=== PATIENT | male | born 1960 | race Caucasian/White ===

== ENCOUNTER 2016-10-10 14:45 | Inpatient (IN) | payer MEDICARE, OTHER ==
--- NOTE | 2016-10-10 15:49 | ED ---
General Adult HPI - General Chief complaint: Weakness Stated complaint: abdominal pain Time Seen by Provider: 10/10/16 15:00 Source: patient, EMS, RN notes reviewed Mode of arrival: EMS Limitations: no limitations - History of Present Illness Initial comments: Patient is a pleasant 56-year-old male presenting to the emergency Department as a transfer from [facility]. Patient was originally seen secondary to abdominal discomfort. Patient states it is been occurring for weeks. Patient denies any chest discomfort. Patient does admit to having exertional dyspnea. Patient was found to have concerns for acute renal failure, colon mass with liver metastases, elevated troponin. Patient was not started on heparin secondary to being occult positive. Patient denies ever having chest discomfort. Case was discussed with Dr. Reid prior to transfer of patient. - Related Data Home Medications Medication Instructions Recorded Confirmed Atorvastatin [Lipitor] 40 mg PO DAILY 06/27/14 10/10/16 OXcarbazepine [Trileptal] 300 mg PO BID 06/27/14 10/10/16 Polyethylene Glycol 3350 [Miralax] 17 gm PO BID 06/27/14 10/10/16 Sevelamer [Renvela] 800 mg PO BID 06/27/14 10/10/16 Tamsulosin HCl [Flomax] 0.4 mg PO DAILY 06/27/14 10/10/16 cloZAPine [Clozaril] 400 mg PO HS 06/27/14 10/10/16 sitaGLIPtin [Januvia] 25 mg PO DAILY 06/27/14 10/10/16 Calcitriol 0.25 mcg PO Q7D 10/10/16 10/10/16 Carvedilol [Coreg] 6.25 mg PO BID 10/10/16 10/10/16 Colloidal Oatmeal [Eucerin Eczema 1 applic TOPICAL DAILY 10/10/16 10/10/16 Relief] Docusate [Colace] 100 mg PO DAILY 10/10/16 10/10/16 Finasteride [Proscar] 5 mg PO DAILY 10/10/16 10/10/16 Multivitamins, Thera [Multivitamin 1 tab PO DAILY 10/10/16 10/10/16 (formulary)] Sulfamethoxazole/Trimethoprim 1 tab PO BID 10/10/16 10/10/16 [Bactrim DS 800-160 mg] cloZAPine [Clozaril] 200 mg PO DAILY@1500 10/10/16 10/10/16 glipiZIDE [Glucotrol] 5 mg PO DAILY 10/10/16 10/10/16 Allergies Allergy/AdvReac Type Severity Reaction Status Date / Time No Known Allergies Allergy Verified 10/10/16 15:19 Review of Systems ROS Statement: Those systems with pertinent positive or pertinent negative responses have been documented in the HPI. ROS Other: All systems not noted in ROS Statement are negative. Constitutional: Denies: fever Eyes: Denies: eye pain ENT: Denies: ear pain Respiratory: Reports: dyspnea (With exertion). Denies: cough Cardiovascular: Denies: chest pain Endocrine: Reports: fatigue Gastrointestinal: Reports: abdominal pain, constipation Genitourinary: Denies: dysuria Musculoskeletal: Denies: back pain Skin: Denies: rash Neurological: Denies: weakness Past Medical History Past Medical History: Diabetes Mellitus, Hypertension History of Any Multi-Drug Resistant Organisms: None Reported Past Surgical History: No Surgical Hx Reported Past Psychological History: Depression, Schizophrenia Smoking Status: Former smoker Past Alcohol Use History: None Reported Past Drug Use History: None Reported General Exam Limitations: no limitations General appearance: alert, in no apparent distress Head exam: Present: atraumatic Eye exam: Present: normal appearance, PERRL ENT exam: Present: normal oropharynx Neck exam: Present: normal inspection Respiratory exam: Present: normal lung sounds bilaterally Cardiovascular Exam: Present: regular rate, normal rhythm GI/Abdominal exam: Present: soft, distended (Mildly distended abdomen however patient feels this is normal for), tenderness (Mild diffuse tenderness) Extremities exam: Present: normal inspection. Absent: pedal edema, calf tenderness Neurological exam: Present: alert Psychiatric exam: Present: normal affect, normal mood Skin exam: Present: normal color Course Vital Signs 10/10/16 14:46 Temperature 97.9 F Pulse Rate 73 Respiratory 16 Rate Blood Pressure 136/87 O2 Sat by Pulse 100 Oximetry - Reevaluation(s) Reevaluation #1: 10/10/16 15:49 Records were reviewed from [facility] including computed tomography scan report. EKG Findings - EKG Comments: EKG Findings:: Normal sinus rhythm 73. W[place] 186. QRS 90. QT 414. QTC 456. Normal axis. Normal QRS. No acute ST change. Disposition Clinical Impression: Mass of cecum, Hepatic metastasis, Acute renal failure (ARF) Disposition: ADMITTED IP TO THIS HOSP Referrals: Demetri Mark DO [Primary Care Provider] - 1-2 days Decision Time: 15:50
[2016-10-10] MEDS ORDERED: SODIUM CHLORIDE 0.9% 1,000 ML IV STA (15:50)
[2016-10-10] MEDS ORDERED: NALOXONE 0.4 MG/ML 1 ML VIAL IV PRN (16:07)
[2016-10-10] MEDS ORDERED: PANTOPRAZOLE 40 MG TABLET PO STA (16:13)
[2016-10-10 17:27] LABS: Basophils # (A) 0.1 k/uL (0-0.2); Basophils % (A) 0 %; CH 29.2; Eosinophils # (A) 0.5 k/uL (0-0.7); Eosinophils % (A) 3 %; HCT 33.5 % (39.0-53.0); HDW 2.82; Hypochromasia Slight; Luc # (Auto) 0.15; Luc % (Auto) 1; Lymphocytes # (A) 1.1 k/uL (1.0-4.8); Lymphocytes % (A) 7 %; MCH 30.1 pg (25.0-35.0); MCHC 32.8 g/dL (31.0-37.0); MCV 91.6 fL (80.0-100.0); Monocytes # (A) 0.8 k/uL (0-1.0); Monocytes % (A) 6 %; Neutrophils # (A) 12.6 k/uL (1.3-7.7); Neutrophils % (A) 83 %; RBC 3.66 m/uL (4.30-5.90); WBC 15.2 k/uL (3.8-10.6); WBC (Perox) 15.43
[2016-10-10 17:31] LABS: Potassium 4.8 mmol/L (3.5-5.1); Total Protein 5.5 g/dL (6.3-8.2)
[2016-10-10 17:45] LABS: INR 1.1 (<1.2); Partial Thromboplastin Time 22.3 sec (22.0-30.0); Prothrombin Time 10.9 sec (9.0-12.0)
[2016-10-10 17:57] LABS: Troponin I 0.094 ng/mL (0.000-0.034)
[2016-10-10] MEDS: SODIUM CHLORIDE 0.9% 1,000 ML IV SCH (19:12)
[2016-10-10] MEDS: POLYETHYLENE GLYCOL 3350 17 GM POWD.PACK PO SCH (21:49)
[2016-10-10] MEDS: cloZAPine 100 MG TAB PO SCH (21:50)
[2016-10-10] MEDS: SULFAMETHOX-TMP 800-160MG 1 EACH TAB PO SCH (21:50)
[2016-10-10] MEDS: SEVELAMER 800 MG TAB PO SCH (21:50)
[2016-10-10] MEDS: CARVEDILOL 6.25 MG TAB PO SCH (21:50)
[2016-10-10] MEDS: OXcarbazepine 300 MG TAB PO SCH (21:50)
[2016-10-10 21:57] LABS: Glucose,Whole Blood 159 mg/dL (75-99)
[2016-10-10] MEDS: ONDANSETRON 4 MG/2 ML VIAL IVP PRN (21:59)
[2016-10-11] MEDS: HYDROmorphone 1 MG/ML 1 ML SYRINGE IVP PRN ×4 (00:06→21:54)
[2016-10-11] MEDS: SODIUM CHLORIDE 0.9% 1,000 ML IV SCH ×2 (04:41→11:44)
[2016-10-11 04:51] LABS: Basophils % (A) 0 %; CH 29.3; CHCM 31.6; Eosinophils # (A) 0.3 k/uL (0-0.7); Eosinophils % (A) 3 %; HCT 32.7 % (39.0-53.0); HDW 2.77; HGB 10.2 gm/dL (13.0-17.5); Hypochromasia Slight; Luc # (Auto) 0.09; Luc % (Auto) 1; Lymphocytes # (A) 0.8 k/uL (1.0-4.8); Lymphocytes % (A) 7 %; MCH 29.1 pg (25.0-35.0); MCHC 31.2 g/dL (31.0-37.0); MCV 93.3 fL (80.0-100.0); Mean Platelet Volume 7.9; Monocytes # (A) 0.5 k/uL (0-1.0); Monocytes % (A) 5 %; Neutrophils # (A) 8.8 k/uL (1.3-7.7); Neutrophils % (A) 84 %; RBC 3.51 m/uL (4.30-5.90); RDW 13.2 % (11.5-15.5); WBC 10.5 k/uL (3.8-10.6)
[2016-10-11 05:08] LABS: Calcium 8.9 mg/dL (8.4-10.2); Potassium 4.5 mmol/L (3.5-5.1); Total Bilirubin 1.1 mg/dL (0.2-1.3); Total Protein 5.2 g/dL (6.3-8.2)
[2016-10-11 05:51] LABS: Glucose,Whole Blood 129 mg/dL (75-99)
[2016-10-11 07:12] LABS: Appearance,Urine Clear (Clear); Bilirubin,Urine Negative (Negative); Glucose,Urine (UA) Negative (Negative); Ketones,Urine Negative (Negative); Leukocyte Esterase,Urine Negative (Negative); Nitrite,Urine Negative (Negative); PH, Urine 5.5 (5.0-8.0); Protein,Urine Trace (Negative); Specific Gravity,Urine 1.005 (1.001-1.035); UA Billing (MACRO vs. MICRO) CHEM; Urobilinogen,Urine <2.0 mg/dL (<2.0)
[2016-10-11] MEDS: CARVEDILOL 6.25 MG TAB PO SCH ×2 (09:10→15:59)
[2016-10-11] MEDS: SULFAMETHOX-TMP 800-160MG 1 EACH TAB PO SCH (09:10)
[2016-10-11] MEDS: SEVELAMER 800 MG TAB PO SCH ×2 (09:10→15:59)
[2016-10-11] MEDS: ATORVASTATIN 40 MG TAB PO SCH (09:10)
[2016-10-11] MEDS: DOCUSATE 100 MG CAP PO SCH (09:10)
[2016-10-11] MEDS: LINAGLIPTIN 5 MG TABLET PO SCH (09:10)
[2016-10-11] MEDS: TAMSULOSIN 0.4 MG CAP.ER.24H PO SCH (09:10)
[2016-10-11] MEDS: FINASTERIDE 5 MG TAB PO SCH (09:10)
[2016-10-11] MEDS: glipiZIDE 5 MG TAB PO SCH (09:10)
[2016-10-11] MEDS: OXcarbazepine 300 MG TAB PO SCH ×2 (09:10→21:47)
[2016-10-11] MEDS: MULTIVITAMINS, THERA 1 EACH TAB PO SCH (09:10)
[2016-10-11] MEDS: PANTOPRAZOLE 40 MG TABLET PO SCH (09:11)
[2016-10-11] MEDS: POLYETHYLENE GLYCOL 3350 17 GM POWD.PACK PO SCH ×2 (09:11→21:46)
[2016-10-11] MEDS: MINERAL OIL-WHITE PETROLATUM 120 GM JAR TOPICAL SCH (09:11)
--- NOTE | 2016-10-11 09:33 | US ---
EXAMINATION TYPE: US abdomen complete DATE OF EXAM: 10/11/2016 COMPARISON: Outside CT study from one day earlier CLINICAL HISTORY: abdominal distention. ABD distention, abnormal CT EXAM MEASUREMENTS: Liver Length: 18.1 cm Gallbladder Wall: 0.6 cm CBD: 0.6 cm Spleen: 12.6 cm Right Kidney: 9.0 x 4.0 x 4.6 cm Left Kidney: 10.5 x 4.4 x 4.3 cm Pancreas: Body wnl, at level of head there is a hypoechoic area= 4.4 x 2.4 x 4.8 cm, ?panc in origin vs possible lymph node Liver: Enlarged, grossly heterogeneous with masslike features scattered throughout Gallbladder: Slightly contracted with thickened wall Evidence for sonographic Sanders's sign: No CBD: wnl Spleen: wnl, ?possible small amount of fluid adjacent to spleen Right Kidney: No evidence of hydro, small in size Left Kidney: No evidence of hydro, specular reflections scattered throughout Upper IVC: wnl Abd Aorta: Proximal portion upper limits of normal, mid and distal portions common bile duct is uppe r limits of normal. Gassed out Pancreas is heterogeneous and bulky in appearance but appears within normal limits on recent CT. Ther e is abnormal adenopathy towards the head there level of hilda hepatis. Visualized portion of aorta p roximally shows no aneurysmal change. Majority of aorta is obscured by overlying bowel gas but appear ed within normal limits on recent CT. IVC is seen near hepatic dome. Liver is heterogeneous in appearance making evaluation for focal masses suboptimal. Innumerable jazmyn s replace liver seen better on recent CT. No intrahepatic ductal dilatation is present. Common bile d uct is upper limits of normal. Gallbladder wall is thickened up to 6 mm. No shadowing mobile gallston es or surrounding suspicious fluid is seen. No hydronephrosis is evident in either kidney. Spleen is upper limits of normal in size. IMPRESSION: 1. Innumerable lesions scattered throughout the liver felt to reflect diffuse primarily intrahepatic or more likely metastatic malignancy. Malignant adenopathy in the hilda hepatis is present. Imaging g uided random biopsy for tissue confirmation can be performed if desired. 2. Abnormal gallbladder wall thickening without shadowing intraluminal gallstones while this could be product of acalculus cholecystitis this is more likely product of liver disease related to diffuse n eoplastic involvement.
--- NOTE | 2016-10-11 10:28 | P.NPCON ---
History of Present Illness - Reason for Consult acute renal failure - History of Present Illness Reason for consultation: Chronic kidney disease History of present illness: Patient is a 56-year-old male seen in renal consultation for chronic kidney disease. 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 Patient presented to the hospital with abdominal pain which is been going on for a few weeks now. He does feel nauseous but denies any vomiting. No diarrhea. He also noted to have a colon mass with metastatic disease to the liver. He states his oral intake has been fair. Admits to good urine output. No hematuria or dysuria. I do see Bactrim listed in his home medications. Unclear as to why he is on a. Denies use of NSAIDs. He was scheduled to see vascular surgeon as an outpatient for AV fistula surgery. His creatinine was 3.9 on admission and is down to 3.7 today. No chest pain or shortness of breath. No fever or chills. No other complaints at this time. Vital signs are stable. General: The patient appeared well nourished and normally developed. HEENT: Head exam is unremarkable. Neck is without jugular venous distension. LUNGS: Lungs are clear to auscultation and percussion. Breath sounds decreased. HEART: Rate and Rhythm are regular. First and second heart sounds normal. No murmurs, rubs or gallops. ABDOMEN: Abdominal exam reveals normal bowel sounds. Non-tender and non- distended. EXTREMITITES: No clubbing, cyanosis, or edema. Past Medical History Past Medical History: Diabetes Mellitus, Hyperlipidemia, Hypertension, Prostate Disorder Additional Past Medical History / Comment(s): constipation, past anemia, deprssion, schizoprenia History of Any Multi-Drug Resistant Organisms: None Reported Past Surgical History: Tonsillectomy Past Anesthesia/Blood Transfusion Reactions: No Reported Reaction Additional Past Anesthesia/Blood Transfusion Reaction / Comment(s): pt is disabled-lives at [place] [phone]. Has [facility] public guardian ethel garvin [phone]. Smoking Status: Former smoker - Past Family History Father Family Medical History: Unable to Obtain Mother History Unknown: Yes Medications and Allergies Home Medications Medication Instructions Recorded Confirmed Type Atorvastatin [Lipitor] 40 mg PO DAILY 06/27/14 10/10/16 History OXcarbazepine [Trileptal] 300 mg PO BID 06/27/14 10/10/16 History Polyethylene Glycol 3350 [Miralax] 17 gm PO BID 06/27/14 10/10/16 History Sevelamer [Renvela] 800 mg PO BID 06/27/14 10/10/16 History Tamsulosin HCl [Flomax] 0.4 mg PO DAILY 06/27/14 10/10/16 History cloZAPine [Clozaril] 400 mg PO HS 06/27/14 10/10/16 History sitaGLIPtin [Januvia] 25 mg PO DAILY 06/27/14 10/10/16 History Calcitriol 0.25 mcg PO Q7D 10/10/16 10/10/16 History Carvedilol [Coreg] 6.25 mg PO BID 10/10/16 10/10/16 History Colloidal Oatmeal [Eucerin Eczema 1 applic TOPICAL DAILY 10/10/16 10/10/16 History Relief] Docusate [Colace] 100 mg PO DAILY 10/10/16 10/10/16 History Finasteride [Proscar] 5 mg PO DAILY 10/10/16 10/10/16 History Multivitamins, Thera [Multivitamin 1 tab PO DAILY 10/10/16 10/10/16 History (formulary)] Sulfamethoxazole/Trimethoprim 1 tab PO BID 10/10/16 10/10/16 History [Bactrim DS 800-160 mg] cloZAPine [Clozaril] 200 mg PO DAILY@1500 10/10/16 10/10/16 History glipiZIDE [Glucotrol] 5 mg PO DAILY 10/10/16 10/10/16 History Allergies Allergy/AdvReac Type Severity Reaction Status Date / Time No Known Allergies Allergy Verified 10/10/16 15:19 Physical Exam Vitals: Vital Signs Temp Pulse Pulse Resp BP BP Pulse Ox 10/11/16 09:19 97.7 F 82 16 110/71 100 10/11/16 04:00 97.7 F 87 18 119/73 99 10/11/16 00:00 97.2 F L 85 18 116/71 100 10/10/16 20:00 97.6 F 86 18 114/69 98 10/10/16 16:55 97.1 F L 85 16 121/77 100 10/10/16 15:50 98.1 F 18 98/54 92 L 10/10/16 14:46 97.9 F 73 16 136/87 100 Intake and Output 10/10/16 10/11/16 10/11/16 22:59 06:59 14:59 Intake Total 300 3500 Output Total 250 Balance 300 3250 Intake: Intake, IV Titration 1100 Amount Sodium Chloride 0.9% 1, 1100 000 ml @ 100 mls/hr IV . Q10H [facility] Rx#:[id number] Oral 300 2400 Output: Urine 250 Other: Voiding Method Incontinent Incontinent Incontinent # Voids 3 3 Weight 98.883 kg 94.5 kg Results - Lab Results Most recent lab results Calcium 8.9 mg/dL (8.4-10.2) 10/11/16 04:13 10/11/16 04:13 10/11/16 04:13 Assessment and Plan Plan: Assessment: #1. Chronic kidney disease stage IV secondary to nephrosclerosis with baseline creatinine in the range of 3-4 for the last 2 years. Urinalysis noted to be benign. #2. Colon mass with metastatic disease to the liver. #3. Chronic kidney disease mineral bone disease. #4. Metabolic acidosis secondary to chronic kidney disease. Plan: Continue normal saline at 100 mL an hour. Add sodium bicarbonate supplementation. Check phosphorus level. Avoid nephrotoxic agents and hypotensive episodes. Repeat electrolytes in the morning. Unclear as to why he is on Bactrim. Consider alternate. Monitor potassium. Thank you for the consultation. I will continue to follow the patient with you during his hospital stay.
[2016-10-11 11:41] LABS: Glucose,Whole Blood 190 mg/dL (75-99)
--- NOTE | 2016-10-11 11:49 | HP ---
ADDENDUM: Additional diagnoses will include: 1. Acute pancreatitis. 2. Moderate protein calorie malnutrition. 3. Elevated troponin secondary to renal insufficiency. 4. Elevated liver enzymes secondary to hepatic metastasis. MTDD
--- NOTE | 2016-10-11 11:51 | HP ---
CHIEF COMPLAINT: 56 year old white male with metastatic colon cancer and abdominal discomfort with increased abdominal swelling and pain over the past few weeks. He was brought to the emergency room, was found to have acute renal failure with creatinine into the 3s and colon mass and liver metastases and elevated troponin. He had occult stool positive at which time was not given heparin. He was also having some atypical chest pain. He was admitted to the hospital. Cardiology consult as well as oncologist and surgery for GI bleed. HOME MEDICATIONS: 1. Lipitor 40 mg daily. 2. Trileptal 300 b.i.d. 3. Polyethylene glycol 17 gm b.i.d. 4. Renvela 800 b.i.d. 5. Flomax 0.4 mg daily. 6. Clozaril 400 daily. 7. Januvia 25 mg po daily. 8. Calcitriol 0.25 mcg po every seven days. 9. Coreg 6.25 b.i.d. 10. Colace 100 mg daily. 11. Proscar 5 mg daily. 12. Multivitamin daily. 13. Bactrim one b.i.d. 14. Clozaril 200 daily. 15. Glucotrol 5 daily. ALLERGIES: No known drug allergies. REVIEW OF SYSTEMS: 14 point review of systems negative except for what is mentioned in the HPI. PAST MEDICAL HISTORY: Diabetes mellitus, hypertension, schizophrenia, depression, states he has never had a colonoscopy before. PHYSICAL EXAMINATION: Temperature 97.9. Pulse 77. Respiratory 16. Blood pressure 130s/80s. O2 100% on room air. CARDIOVASCULAR: S1, S2. LUNGS: Transmitted upper airway sounds. GI: Soft, nontender. HEMATOLOGICAL: Negative Funmilayo's. PSYCH: Fair mood and affect. NEUROLOGICAL: Alert and oriented times three. SKIN: Normal. VASCULAR: Excoriation with bruising. ENT: External appearing of ears and nose within normals. OPHTHALMOLOGICAL: Pupils equal, round and reactive to light and accommodation. ASSESSMENT: 1. Cecal mass suspect metastatic colon cancer with metastasis. 2. Acute abdominal distention secondary to metastases and colon cancer. 3. Acute renal failure secondary to possibly metastases. Abdominal ultrasound will be done in the morning. Surgical consult. Oncology consult. Please see further orders. MTDD
[2016-10-11 12:34] LABS: Hemoglobin A1C 6.9 % (4.2-6.1)
[2016-10-11] MEDS: cloZAPine 100 MG TAB PO SCH ×2 (15:59→21:46)
--- NOTE | 2016-10-11 16:09 | P.CRDCN ---
History of Present Illness Consult date: 10/11/16 Reason for Consult (text): elevated troponin Chief complaint: loss of balance, incontinence History of present illness: This Is a pleasant 56-year-old gentleman who resides in a [place] [facility] and is a poor historian. He presented to the emergency room here as a transfer from [facility]. Patient was originally seen secondary to abdominal discomfort and of loss of balance and incontinence. He's also been having exertional shortness of breath. Patient is found to have acute renal failure, colon mass with liver metastases and elevated troponin. Patient was positive for occult blood in his stool therefore heparin was not started. EKG on admission showed normal sinus rhythm without acute ST-T wave abnormalities. X- ray values showed a BUN of 51 and creatinine 3.7, troponin 0.094, 0.095 and 0.107. Liver enzymes have been found to be elevated with an AST of 99, ALT 98 and alkaline phosphatase 546. Upon examination, patient is resting comfortably in bed. Complains of diffuse abdominal discomfort. Also complains of some dizziness, weakness, and difficulty breathing at times. Past Medical History Past Medical History: Diabetes Mellitus, Hyperlipidemia, Hypertension, Prostate Disorder Additional Past Medical History / Comment(s): constipation, past anemia, deprssion, schizoprenia History of Any Multi-Drug Resistant Organisms: None Reported Past Surgical History: Tonsillectomy Past Anesthesia/Blood Transfusion Reactions: No Reported Reaction Additional Past Anesthesia/Blood Transfusion Reaction / Comment(s): pt is disabled-lives at [place] [phone]. Has [facility] public guardian ethel garvin [phone]. Smoking Status: Former smoker - Past Family History Father Family Medical History: Unable to Obtain Mother History Unknown: Yes Medications and Allergies Home Medications Medication Instructions Recorded Confirmed Type Atorvastatin [Lipitor] 40 mg PO DAILY 06/27/14 10/10/16 History OXcarbazepine [Trileptal] 300 mg PO BID 06/27/14 10/10/16 History Polyethylene Glycol 3350 [Miralax] 17 gm PO BID 06/27/14 10/10/16 History Sevelamer [Renvela] 800 mg PO BID 06/27/14 10/10/16 History Tamsulosin HCl [Flomax] 0.4 mg PO DAILY 06/27/14 10/10/16 History cloZAPine [Clozaril] 400 mg PO HS 06/27/14 10/10/16 History sitaGLIPtin [Januvia] 25 mg PO DAILY 06/27/14 10/10/16 History Calcitriol 0.25 mcg PO Q7D 10/10/16 10/10/16 History Carvedilol [Coreg] 6.25 mg PO BID 10/10/16 10/10/16 History Colloidal Oatmeal [Eucerin Eczema 1 applic TOPICAL DAILY 10/10/16 10/10/16 History Relief] Docusate [Colace] 100 mg PO DAILY 10/10/16 10/10/16 History Finasteride [Proscar] 5 mg PO DAILY 10/10/16 10/10/16 History Multivitamins, Thera [Multivitamin 1 tab PO DAILY 10/10/16 10/10/16 History (formulary)] Sulfamethoxazole/Trimethoprim 1 tab PO BID 10/10/16 10/10/16 History [Bactrim DS 800-160 mg] cloZAPine [Clozaril] 200 mg PO DAILY@1500 10/10/16 10/10/16 History glipiZIDE [Glucotrol] 5 mg PO DAILY 10/10/16 10/10/16 History Allergies Allergy/AdvReac Type Severity Reaction Status Date / Time No Known Allergies Allergy Verified 10/10/16 15:19 Physical Exam Vitals: Vital Signs Temp Pulse Pulse Resp BP BP Pulse Ox 10/11/16 12:00 97.6 F 81 16 108/70 100 10/11/16 09:19 97.7 F 82 16 110/71 100 10/11/16 04:00 97.7 F 87 18 119/73 99 10/11/16 00:00 97.2 F L 85 18 116/71 100 10/10/16 20:00 97.6 F 86 18 114/69 98 10/10/16 16:55 97.1 F L 85 16 121/77 100 Intake and Output 10/11/16 10/11/16 10/11/16 06:59 14:59 22:59 Intake Total 3500 180 Output Total 250 Balance 3250 180 Intake: Intake, IV Titration 1100 Amount Sodium Chloride 0.9% 1, 1100 000 ml @ 100 mls/hr IV . Q10H [facility] Rx#:[id number] Oral 2400 180 Output: Urine 250 Other: Voiding Method Incontinent Incontinent # Voids 3 Weight 94.5 kg PHYSICAL EXAMINATION: HEENT: Head is atraumatic, normocephalic. Pupils equal, round. Neck is supple. There is no elevated jugular venous pressure. HEART EXAMINATION: Heart sounds regular, S1 and S2 normal. No murmur or gallop heard. CHEST EXAMINATION: Lungs are clear to auscultation and precussion. No chest wall tenderness is noted on palpation or with deep breathing. ABDOMEN: Distended with diffuse tenderness upon palpation. Bowel sounds are heard. No organomegaly noted. EXTREMITIES: 1+ peripheral pulses with no evidence of peripheral edema and no calf tenderness noted. NEUROLOGIC patient is awake, alert and oriented to person and place. . Results 10/11/16 04:13 10/11/16 04:13 Cardiac Enzymes 10/10/16 10/10/16 10/10/16 Range/Units 16:45 16:45 22:05 AST 91 H (17-59) U/L CK-MB (CK-2) 3.0 H* (0.0-2.4) ng/mL Troponin I 0.094 H* 0.095 H* (0.000-0.034) ng/mL 10/11/16 10/11/16 Range/Units 04:13 04:13 AST 99 H (17-59) U/L CK-MB (CK-2) (0.0-2.4) ng/mL Troponin I 0.107 H* (0.000-0.034) ng/mL Coagulation 10/10/16 Range/Units 16:45 PT 10.9 (9.0-12.0) sec APTT 22.3 (22.0-30.0) sec CBC 10/10/16 10/11/16 Range/Units 16:45 04:13 WBC 15.2 H 10.5 (3.8-10.6) k/uL RBC 3.66 L 3.51 L (4.30-5.90) m/uL Hgb 11.0 L 10.2 L (13.0-17.5) gm/dL Hct 33.5 L 32.7 L (39.0-53.0) % Plt Count 186 162 (150-450) k/uL Comprehensive Metabolic Panel 10/10/16 10/11/16 Range/Units 16:45 04:13 Sodium 141 143 (137-145) mmol/L Potassium 4.8 4.5 (3.5-5.1) mmol/L Chloride 109 H 114 H (98-107) mmol/L Carbon Dioxide 21 L 16 L (22-30) mmol/L BUN 51 H 51 H (9-20) mg/dL Creatinine 3.90 H 3.70 H (0.66-1.25) mg/dL Glucose 150 H 109 H (74-99) mg/dL Calcium 9.0 8.9 (8.4-10.2) mg/dL AST 91 H 99 H (17-59) U/L ALT 101 H 98 H (21-72) U/L Alkaline Phosphatase 537 H 546 H (38-126) U/L Total Protein 5.5 L 5.2 L (6.3-8.2) g/dL Albumin 3.1 L 2.8 L (3.5-5.0) g/dL Current Medications Generic Name Dose Route Start Last Admin Trade Name Joseq PRN Reason Stop Dose Admin Atorvastatin Calcium 40 mg 10/11/16 09:00 10/11/16 09:10 Lipitor PO 40 mg DAILY [facility] Administration Calcitriol 0.25 mcg 10/12/16 09:00 Rocaltrol PO Q7D [facility] Carvedilol 6.25 mg 10/10/16 21:00 10/11/16 15:59 Coreg PO 6.25 mg BID-W/MEALS [facility] Administration Clozapine 200 mg 10/11/16 15:00 10/11/16 15:59 Clozaril PO 10/18/16 15:01 200 mg DAILY@1500 [facility] Administration Clozapine 400 mg 10/10/16 21:00 10/10/16 21:50 Clozaril PO 10/18/16 21:01 400 mg HS [facility] Administration Docusate Sodium 100 mg 10/11/16 09:00 10/11/16 09:10 Colace PO 100 mg DAILY [facility] Administration Finasteride 5 mg 10/11/16 09:00 10/11/16 09:10 Proscar PO 5 mg DAILY [facility] Administration Glipizide 5 mg 10/11/16 07:30 10/11/16 09:10 Glucotrol PO 5 mg AC-BRKFST [facility] Administration Hydromorphone HCl 1 mg 10/10/16 19:39 10/11/16 05:28 Dilaudid IVP 0.5 mg Q4HR PRN Administration Pain Sodium Chloride 1,000 mls @ 100 mls/hr 10/10/16 16:15 10/11/16 11:44 Saline 0.9% IV Not Given .Q10H [facility] Linagliptin 5 mg 10/11/16 09:00 10/11/16 09:10 Tradjenta PO 5 mg DAILY [facility] Administration Multi-Ingred Cream/Lotion/Oil/Oint 1 applic 10/11/16 09:00 10/11/16 09:11 Eucerin Cream TOPICAL 1 applic DAILY [facility] Administration Multivitamins 1 each 10/11/16 12:00 10/11/16 09:10 Theragran PO 1 each 1200 [facility] Administration Naloxone HCl 0.2 mg 10/10/16 16:07 Narcan IV Q2M PRN Opioid Reversal Ondansetron HCl 4 mg 10/10/16 16:07 10/10/16 21:59 Zofran IVP 4 mg Q8HR PRN Administration Nausea And Vomiting Oxcarbazepine 300 mg 10/10/16 21:00 10/11/16 09:10 Trileptal PO 300 mg BID [facility] Administration Pantoprazole Sodium 40 mg 10/11/16 07:30 10/11/16 09:11 Protonix PO 40 mg AC-BRKFST [facility] Administration Polyethylene Glycol 17 gm 10/10/16 21:00 10/11/16 09:11 Miralax PO 17 gm BID [facility] Administration Sevelamer Carbonate 800 mg 10/10/16 21:00 10/11/16 15:59 Renvela PO 800 mg BID-W/MEALS [facility] Administration Sodium Bicarbonate 1,300 mg 10/11/16 21:00 Sodium Bicarbonate Tab PO BID [facility] Tamsulosin HCl 0.4 mg 10/11/16 09:00 10/11/16 09:10 Flomax PO 0.4 mg DAILY [facility] Administration Trimethoprim/Sulfamethoxazole 1 each 10/10/16 21:00 10/11/16 09:10 Bactrim Ds PO 10/15/16 21:01 1 each BID [facility] Administration Intake and Output 10/11/16 10/11/16 10/11/16 06:59 14:59 22:59 Intake Total 3500 180 Output Total 250 Balance 3250 180 Intake: Intake, IV Titration 1100 Amount Sodium Chloride 0.9% 1, 1100 000 ml @ 100 mls/hr IV . Q10H [facility] Rx#:[id number] Oral 2400 180 Output: Urine 250 Other: Voiding Method Incontinent Incontinent # Voids 3 Weight 94.5 kg 10/11/16 04:13 10/11/16 04:13 Assessment and Plan Plan: Assessment and plan #1 abdominal pain #2 troponin elevation, does not reflect acute myocardial injury #3 renal failure #4 colon mass with liver metastases From cardiology standpoint, we do not feel troponins. Selective of myocardial ischemia. Elevation likely related to underlying renal failure. We'll follow the patient on an as-needed basis. Please do not hesitate to contact us with questions. 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 Patient was seen and examined.
[2016-10-11 16:59] LABS: Glucose,Whole Blood 289 mg/dL (75-99)
--- NOTE | 2016-10-11 18:01 | P.GSCN ---
History of Present Illness Consult date: 10/11/16 Reason for Consult: Colon mass History of present illness: Patient presents to an outside institution with complaints of abdominal pain and swelling. He was found on CAT scan to have a what appears to represent metastatic disease to the liver. He has no bowel related complaints. Denies rectal bleeding or melena. He has never had a colonoscopy. He is being seen by cardiology, oncology, nephrology, and interventional radiology.He is scheduled for a percutaneous liver biopsy.His medical history does suggest that he takes MiraLAX daily. Review of Systems The patient denies any acute changes in his vision or hearing, no dysphagia or odynophagia, no chest pain or shortness of breath, no dysuria or hematuria, no headache, no runny nose, no rectal bleeding or melena, no unexplained weight loss Past Medical History Past Medical History: Diabetes Mellitus, Hyperlipidemia, Hypertension, Prostate Disorder Additional Past Medical History / Comment(s): constipation, past anemia, deprssion, schizoprenia History of Any Multi-Drug Resistant Organisms: None Reported Past Surgical History: Tonsillectomy Past Anesthesia/Blood Transfusion Reactions: No Reported Reaction Additional Past Anesthesia/Blood Transfusion Reaction / Comm: pt is disabled- lives at [facility] [phone]. Has [facility] public guardian ethel garvin [phone]. Smoking Status: Former smoker - Past Family History Father Family Medical History: Unable to Obtain Mother History Unknown: Yes Medications and Allergies Home Medications Medication Instructions Recorded Confirmed Type Atorvastatin [Lipitor] 40 mg PO DAILY 06/27/14 10/10/16 History OXcarbazepine [Trileptal] 300 mg PO BID 06/27/14 10/10/16 History Polyethylene Glycol 3350 [Miralax] 17 gm PO BID 06/27/14 10/10/16 History Sevelamer [Renvela] 800 mg PO BID 06/27/14 10/10/16 History Tamsulosin HCl [Flomax] 0.4 mg PO DAILY 06/27/14 10/10/16 History cloZAPine [Clozaril] 400 mg PO HS 06/27/14 10/10/16 History sitaGLIPtin [Januvia] 25 mg PO DAILY 06/27/14 10/10/16 History Calcitriol 0.25 mcg PO Q7D 10/10/16 10/10/16 History Carvedilol [Coreg] 6.25 mg PO BID 10/10/16 10/10/16 History Colloidal Oatmeal [Eucerin Eczema 1 applic TOPICAL DAILY 10/10/16 10/10/16 History Relief] Docusate [Colace] 100 mg PO DAILY 10/10/16 10/10/16 History Finasteride [Proscar] 5 mg PO DAILY 10/10/16 10/10/16 History Multivitamins, Thera [Multivitamin 1 tab PO DAILY 10/10/16 10/10/16 History (formulary)] Sulfamethoxazole/Trimethoprim 1 tab PO BID 10/10/16 10/10/16 History [Bactrim DS 800-160 mg] cloZAPine [Clozaril] 200 mg PO DAILY@1500 10/10/16 10/10/16 History glipiZIDE [Glucotrol] 5 mg PO DAILY 10/10/16 10/10/16 History Allergies Allergy/AdvReac Type Severity Reaction Status Date / Time No Known Allergies Allergy Verified 10/10/16 15:19 Surgical - Exam Vital Signs Temp Pulse Resp BP Pulse Ox 97.9 F 73 16 136/87 100 10/10/16 14:46 10/10/16 14:46 10/10/16 14:46 10/10/16 14:46 10/10/16 14:46 Physical exam: General: Well-developed, well-nourished HEENT: Normocephalic, sclerae nonicteric Abdomen: Mild diffuse tenderness, mild distention Extremities: No edema Neuro: Alert but slightly confused Results - Labs 10/11/16 04:13 10/11/16 04:13 Abnormal Lab Results - Last 24 Hours (Table) 10/10/16 10/10/16 10/10/16 Range/Units 16:45 21:56 22:05 RBC (4.30-5.90) m/uL Hgb (13.0-17.5) gm/dL Hct (39.0-53.0) % Neutrophils # (1.3-7.7) k/uL Lymphocytes # (1.0-4.8) k/uL Chloride (98-107) mmol/L Carbon Dioxide (22-30) mmol/L BUN (9-20) mg/dL Creatinine (0.66-1.25) mg/dL Glucose (74-99) mg/dL POC Glucose (mg/dL) 159 H (75-99) mg/dL Hemoglobin A1c (4.2-6.1) % AST (17-59) U/L ALT (21-72) U/L Alkaline Phosphatase (38-126) U/L CK-MB (CK-2) 3.0 H* (0.0-2.4) ng/mL Troponin I 0.094 H* 0.095 H* (0.000-0.034) ng/mL Total Protein (6.3-8.2) g/dL Albumin (3.5-5.0) g/dL Urine Protein (Negative) 10/11/16 10/11/16 10/11/16 Range/Units 04:13 04:13 04:13 RBC 3.51 L (4.30-5.90) m/uL Hgb 10.2 L (13.0-17.5) gm/dL Hct 32.7 L (39.0-53.0) % Neutrophils # 8.8 H (1.3-7.7) k/uL Lymphocytes # 0.8 L (1.0-4.8) k/uL Chloride 114 H (98-107) mmol/L Carbon Dioxide 16 L (22-30) mmol/L BUN 51 H (9-20) mg/dL Creatinine 3.70 H (0.66-1.25) mg/dL Glucose 109 H (74-99) mg/dL POC Glucose (mg/dL) (75-99) mg/dL Hemoglobin A1c (4.2-6.1) % AST 99 H (17-59) U/L ALT 98 H (21-72) U/L Alkaline Phosphatase 546 H (38-126) U/L CK-MB (CK-2) (0.0-2.4) ng/mL Troponin I 0.107 H* (0.000-0.034) ng/mL Total Protein 5.2 L (6.3-8.2) g/dL Albumin 2.8 L (3.5-5.0) g/dL Urine Protein (Negative) 10/11/16 10/11/16 10/11/16 Range/Units 04:13 05:49 06:43 RBC (4.30-5.90) m/uL Hgb (13.0-17.5) gm/dL Hct (39.0-53.0) % Neutrophils # (1.3-7.7) k/uL Lymphocytes # (1.0-4.8) k/uL Chloride (98-107) mmol/L Carbon Dioxide (22-30) mmol/L BUN (9-20) mg/dL Creatinine (0.66-1.25) mg/dL Glucose (74-99) mg/dL POC Glucose (mg/dL) 129 H (75-99) mg/dL Hemoglobin A1c 6.9 H (4.2-6.1) % AST (17-59) U/L ALT (21-72) U/L Alkaline Phosphatase (38-126) U/L CK-MB (CK-2) (0.0-2.4) ng/mL Troponin I (0.000-0.034) ng/mL Total Protein (6.3-8.2) g/dL Albumin (3.5-5.0) g/dL Urine Protein Trace H (Negative) 10/11/16 10/11/16 Range/Units 11:37 16:47 RBC (4.30-5.90) m/uL Hgb (13.0-17.5) gm/dL Hct (39.0-53.0) % Neutrophils # (1.3-7.7) k/uL Lymphocytes # (1.0-4.8) k/uL Chloride (98-107) mmol/L Carbon Dioxide (22-30) mmol/L BUN (9-20) mg/dL Creatinine (0.66-1.25) mg/dL Glucose (74-99) mg/dL POC Glucose (mg/dL) 190 H 289 H (75-99) mg/dL Hemoglobin A1c (4.2-6.1) % AST (17-59) U/L ALT (21-72) U/L Alkaline Phosphatase (38-126) U/L CK-MB (CK-2) (0.0-2.4) ng/mL Troponin I (0.000-0.034) ng/mL Total Protein (6.3-8.2) g/dL Albumin (3.5-5.0) g/dL Urine Protein (Negative) Microbiology - Last 24 Hours (Table) 10/11/16 06:43 Urine Culture - Preliminary Urine,Clean Catch Diabetes panel 10/11/16 10/11/16 Range/Units 04:13 04:13 Sodium 143 (137-145) mmol/L Potassium 4.5 (3.5-5.1) mmol/L Chloride 114 H (98-107) mmol/L Carbon Dioxide 16 L (22-30) mmol/L BUN 51 H (9-20) mg/dL Creatinine 3.70 H (0.66-1.25) mg/dL Glucose 109 H (74-99) mg/dL Hemoglobin A1c 6.9 H (4.2-6.1) % Calcium 8.9 (8.4-10.2) mg/dL AST 99 H (17-59) U/L ALT 98 H (21-72) U/L Alkaline Phosphatase 546 H (38-126) U/L Total Protein 5.2 L (6.3-8.2) g/dL Albumin 2.8 L (3.5-5.0) g/dL Calcium panel 10/11/16 Range/Units 04:13 Calcium 8.9 (8.4-10.2) mg/dL Albumin 2.8 L (3.5-5.0) g/dL Pituitary panel 10/11/16 Range/Units 04:13 Sodium 143 (137-145) mmol/L Potassium 4.5 (3.5-5.1) mmol/L Chloride 114 H (98-107) mmol/L Carbon Dioxide 16 L (22-30) mmol/L BUN 51 H (9-20) mg/dL Creatinine 3.70 H (0.66-1.25) mg/dL Glucose 109 H (74-99) mg/dL Calcium 8.9 (8.4-10.2) mg/dL Adrenal panel 10/11/16 Range/Units 04:13 Sodium 143 (137-145) mmol/L Potassium 4.5 (3.5-5.1) mmol/L Chloride 114 H (98-107) mmol/L Carbon Dioxide 16 L (22-30) mmol/L BUN 51 H (9-20) mg/dL Creatinine 3.70 H (0.66-1.25) mg/dL Glucose 109 H (74-99) mg/dL Calcium 8.9 (8.4-10.2) mg/dL Total Bilirubin 1.1 (0.2-1.3) mg/dL AST 99 H (17-59) U/L ALT 98 H (21-72) U/L Alkaline Phosphatase 546 H (38-126) U/L Total Protein 5.2 L (6.3-8.2) g/dL Albumin 2.8 L (3.5-5.0) g/dL Assessment and Plan (1) Hepatic metastasis Narrative/Plan: Patient is on a regular diet at this time. Await liver biopsy results. Continue gentle catharsis. We'll need upper and lower endoscopy. We'll order a CEA level. Status: Acute
[2016-10-11] MEDS ORDERED: SULFAMETHOX-TMP 400-80MG 1 EACH TAB PO SCH (21:00)
[2016-10-11 21:10] LABS: Glucose,Whole Blood 168 mg/dL (75-99)
[2016-10-11] MEDS: ONDANSETRON 4 MG/2 ML VIAL IVP PRN (21:45)
[2016-10-11] MEDS: SODIUM BICARBONATE TAB 650 MG TAB PO SCH (21:47)
--- NOTE | 2016-10-11 21:53 | P.CONS ---
History of Present Illness - Reason for Consult Consult date: 10/11/16 colon mass, liver lesions Requesting physician: Phoenix Horan - Chief Complaint transfer - History of Present Illness Pt is a very pleasant male with mental disability transferred from [facility] with CT showing cecal mass and liver lesions. Pt states he has had trouble eating, poor appetite, might have vomited but not sure, he states his abd has been getting bigger but he is not sure over what period of time. He denies black or white stool, his urine is yellow, he does not have any pain. Review of Systems ROS unobtainable: due to mental status All systems: negative Past Medical History Past Medical History: Diabetes Mellitus, Hyperlipidemia, Hypertension, Prostate Disorder Additional Past Medical History / Comment(s): constipation, past anemia, deprssion, schizoprenia History of Any Multi-Drug Resistant Organisms: None Reported Past Surgical History: Tonsillectomy Past Anesthesia/Blood Transfusion Reactions: No Reported Reaction Additional Past Anesthesia/Blood Transfusion Reaction / Comm: [phone] ethel garvin [phone]. Smoking Status: Former smoker - Past Family History Father Family Medical History: Unable to Obtain Mother History Unknown: Yes Medications and Allergies Home Medications Medication Instructions Recorded Confirmed Type Atorvastatin [Lipitor] 40 mg PO DAILY 06/27/14 10/10/16 History OXcarbazepine [Trileptal] 300 mg PO BID 06/27/14 10/10/16 History Polyethylene Glycol 3350 [Miralax] 17 gm PO BID 06/27/14 10/10/16 History Sevelamer [Renvela] 800 mg PO BID 06/27/14 10/10/16 History Tamsulosin HCl [Flomax] 0.4 mg PO DAILY 06/27/14 10/10/16 History cloZAPine [Clozaril] 400 mg PO HS 06/27/14 10/10/16 History sitaGLIPtin [Januvia] 25 mg PO DAILY 06/27/14 10/10/16 History Calcitriol 0.25 mcg PO Q7D 10/10/16 10/10/16 History Carvedilol [Coreg] 6.25 mg PO BID 10/10/16 10/10/16 History Colloidal Oatmeal [Eucerin Eczema 1 applic TOPICAL DAILY 10/10/16 10/10/16 History Relief] Docusate [Colace] 100 mg PO DAILY 10/10/16 10/10/16 History Finasteride [Proscar] 5 mg PO DAILY 10/10/16 10/10/16 History Multivitamins, Thera [Multivitamin 1 tab PO DAILY 10/10/16 10/10/16 History (formulary)] Sulfamethoxazole/Trimethoprim 1 tab PO BID 10/10/16 10/10/16 History [Bactrim DS 800-160 mg] cloZAPine [Clozaril] 200 mg PO DAILY@1500 10/10/16 10/10/16 History glipiZIDE [Glucotrol] 5 mg PO DAILY 10/10/16 10/10/16 History Allergies Allergy/AdvReac Type Severity Reaction Status Date / Time No Known Allergies Allergy Verified 10/10/16 15:19 Physical Exam Vitals: Vital Signs Temp Pulse Resp BP Pulse Ox 10/11/16 16:00 97.6 F 83 16 113/72 99 10/11/16 12:00 97.6 F 81 16 108/70 100 10/11/16 09:19 97.7 F 82 16 110/71 100 10/11/16 04:00 97.7 F 87 18 119/73 99 10/11/16 00:00 97.2 F L 85 18 116/71 100 Intake and Output 10/11/16 10/11/16 10/11/16 06:59 14:59 22:59 Intake Total 3500 180 600 Output Total 250 Balance 3250 180 600 Intake: Intake, IV Titration 1100 Amount Sodium Chloride 0.9% 1, 1100 000 ml @ 100 mls/hr IV . Q10H ALYSE Rx#:[id number] Oral 2400 180 600 Output: Urine 250 Other: Voiding Method Incontinent Incontinent Incontinent # Voids 3 3 Weight 94.5 kg - Constitutional General appearance: average body habitus, cooperative, no acute distress - EENT Eyes: anicteric sclerae, EOMI, PERRLA, normal appearance ENT: hearing grossly normal, normal oropharynx - Neck Neck: no lymphadenopathy - Respiratory Respiratory: bilateral: CTA - Cardiovascular Heart sounds: normal: S1, S2 leg Peripheral Edema: bilateral: None - Gastrointestinal General gastrointestinal: no absent bowel sounds, no decreased bowel sounds, distended, hepatomegaly, no hyperactive bowel sounds, normal bowel sounds, no organomegaly, no rigid, no scaphoid, soft, no splenomegaly, no tenderness, no umbilical hernia, no ventral hernia - Integumentary Integumentary: normal - Neurologic Neurologic: CNII-XII intact - Musculoskeletal Musculoskeletal: generalized weakness - Psychiatric oriented to self, place and time, calm, mentally challenged and has difficulty communicating health history Results CBC & Chem 7: 10/11/16 04:13 10/11/16 04:13 Labs: Abnormal Lab Results - Last 24 Hours (Table) 10/10/16 10/10/16 10/11/16 Range/Units 21:56 22:05 04:13 RBC (4.30-5.90) m/uL Hgb (13.0-17.5) gm/dL Hct (39.0-53.0) % Neutrophils # (1.3-7.7) k/uL Lymphocytes # (1.0-4.8) k/uL Chloride 114 H (98-107) mmol/L Carbon Dioxide 16 L (22-30) mmol/L BUN 51 H (9-20) mg/dL Creatinine 3.70 H (0.66-1.25) mg/dL Glucose 109 H (74-99) mg/dL POC Glucose (mg/dL) 159 H (75-99) mg/dL Hemoglobin A1c (4.2-6.1) % AST 99 H (17-59) U/L ALT 98 H (21-72) U/L Alkaline Phosphatase 546 H (38-126) U/L Troponin I 0.095 H* (0.000-0.034) ng/mL Total Protein 5.2 L (6.3-8.2) g/dL Albumin 2.8 L (3.5-5.0) g/dL Urine Protein (Negative) 10/11/16 10/11/16 10/11/16 Range/Units 04:13 04:13 04:13 RBC 3.51 L (4.30-5.90) m/uL Hgb 10.2 L (13.0-17.5) gm/dL Hct 32.7 L (39.0-53.0) % Neutrophils # 8.8 H (1.3-7.7) k/uL Lymphocytes # 0.8 L (1.0-4.8) k/uL Chloride (98-107) mmol/L Carbon Dioxide (22-30) mmol/L BUN (9-20) mg/dL Creatinine (0.66-1.25) mg/dL Glucose (74-99) mg/dL POC Glucose (mg/dL) (75-99) mg/dL Hemoglobin A1c 6.9 H (4.2-6.1) % AST (17-59) U/L ALT (21-72) U/L Alkaline Phosphatase (38-126) U/L Troponin I 0.107 H* (0.000-0.034) ng/mL Total Protein (6.3-8.2) g/dL Albumin (3.5-5.0) g/dL Urine Protein (Negative) 10/11/16 10/11/16 10/11/16 Range/Units 05:49 06:43 11:37 RBC (4.30-5.90) m/uL Hgb (13.0-17.5) gm/dL Hct (39.0-53.0) % Neutrophils # (1.3-7.7) k/uL Lymphocytes # (1.0-4.8) k/uL Chloride (98-107) mmol/L Carbon Dioxide (22-30) mmol/L BUN (9-20) mg/dL Creatinine (0.66-1.25) mg/dL Glucose (74-99) mg/dL POC Glucose (mg/dL) 129 H 190 H (75-99) mg/dL Hemoglobin A1c (4.2-6.1) % AST (17-59) U/L ALT (21-72) U/L Alkaline Phosphatase (38-126) U/L Troponin I (0.000-0.034) ng/mL Total Protein (6.3-8.2) g/dL Albumin (3.5-5.0) g/dL Urine Protein Trace H (Negative) 10/11/16 10/11/16 Range/Units 16:47 21:09 RBC (4.30-5.90) m/uL Hgb (13.0-17.5) gm/dL Hct (39.0-53.0) % Neutrophils # (1.3-7.7) k/uL Lymphocytes # (1.0-4.8) k/uL Chloride (98-107) mmol/L Carbon Dioxide (22-30) mmol/L BUN (9-20) mg/dL Creatinine (0.66-1.25) mg/dL Glucose (74-99) mg/dL POC Glucose (mg/dL) 289 H 168 H (75-99) mg/dL Hemoglobin A1c (4.2-6.1) % AST (17-59) U/L ALT (21-72) U/L Alkaline Phosphatase (38-126) U/L Troponin I (0.000-0.034) ng/mL Total Protein (6.3-8.2) g/dL Albumin (3.5-5.0) g/dL Urine Protein (Negative) Microbiology - Last 24 Hours (Table) 10/11/16 06:43 Urine Culture - Preliminary Urine,Clean Catch US - abdomen: report reviewed Assessment and Plan (1) Liver lesion Status: Acute (2) Mass of cecum Status: Acute Plan: After chart review pt is being sched for liver biopsy and endoscopy. Highly suspect metastatic disease but we will await biopsy results from liver and colonoscopy. Discussed with pt that we are finding out what is going on, he was unable to tell me someone who advocates for him, he did mention a brother but his demographics does not list a next of kin or emergency contact. If pt does not have medical decision maker then Public guardian will need to be assigned do decide if there should be plans to pursue treatment for cancer if pt is diagnosed with the same. We will follow up with Social Work
--- NOTE | 2016-10-11 23:41 | PN ---
CHIEF COMPLAINT: [id number] white male presents with chronic kidney disease, stage IV, ranging over III to IV over the last 2 years. He is admitted for possible colon mass, metastatic to the liver. Awaiting biopsy by Surgery or possible radiation; or radiologist to do a needle biopsy of the liver. He has a history of diabetes mellitus, hypertension, prostate disorder, dyslipidemia. Home medications are reviewed. Consult to Dr. Julian for needle biopsy of the liver at this time, as Surgery has not assessed the patient at this time. Abdominal pain is slightly improved. CARDIOVASCULAR: S1, S2. LUNGS: Clear. GI: Distended. Obesity and firmness, possibly ascites. ASSESSMENT: 1. Colon mass with liver metastases. 2. Chronic renal disease, stage IV. 3. Metabolic acidosis. 4. Acute on chronic anemia. Continue current treatments. Awaiting possible biopsy ( ). Antibiotics ( ) and continue with current treatments. MTDD
[2016-10-12 06:51] LABS: Glucose,Whole Blood 126 mg/dL (75-99)
[2016-10-12] MEDS: PANTOPRAZOLE 40 MG TABLET PO SCH (06:51)
[2016-10-12] MEDS: SEVELAMER 800 MG TAB PO SCH ×2 (06:51→17:07)
[2016-10-12] MEDS: CARVEDILOL 6.25 MG TAB PO SCH ×2 (06:51→17:07)
[2016-10-12] MEDS: glipiZIDE 5 MG TAB PO SCH (06:51)
[2016-10-12] MEDS: SODIUM CHLORIDE 0.9% 1,000 ML IV SCH ×3 (06:52→17:07)
[2016-10-12 07:06] LABS: Anion Gap 11 mmol/L; Blood Urea Nitrogen 49 mg/dL (9-20); Calcium 8.7 mg/dL (8.4-10.2); Carbon Dioxide 17 mmol/L (22-30); Chloride 117 mmol/L (98-107); Glucose 93 mg/dL (74-99); Non-African American GFR(MDRD) 17 (>60 ml/min/1.73 sqM); Phosphorous 3.9 mg/dL (2.5-4.5); Potassium 4.6 mmol/L (3.5-5.1); Sodium 145 mmol/L (137-145)
--- NOTE | 2016-10-12 08:50 | P.PN ---
Subjective Patient is seen in follow-up for acute kidney injury on chronic kidney disease. Patient has chronic knee disease stage IV with baseline creatinine in the range of 3-4. His creatinine today is 3.8. Patient presented with abdominal pain and is noted to have a colonic mass with probable metastatic disease to the liver. States he last urinated last night. No vomiting or diarrhea. Abdominal pain is improved. Vital signs are stable. General: The patient appeared well nourished and normally developed. HEENT: Head exam is unremarkable. Neck is without jugular venous distension. LUNGS: Lungs are clear to auscultation and percussion. Breath sounds decreased. HEART: Rate and Rhythm are regular. First and second heart sounds normal. No murmurs, rubs or gallops. ABDOMEN: Abdominal exam reveals normal bowel sounds. Non-tender and non- distended. No evidence of peritonitis. EXTREMITITES: No clubbing, cyanosis, or edema. Objective - Vital Signs Vital signs: Vital Signs Temp 97.1 F L 10/12/16 04:00 Pulse 86 10/12/16 04:00 Resp 16 10/12/16 04:00 BP 113/71 10/12/16 04:00 Pulse Ox 97 10/12/16 04:00 Intake & Output 10/11/16 10/12/16 10/12/16 18:59 06:59 18:59 Intake Total 180 1200 Balance 180 1200 Weight 96.3 kg Intake: Oral 180 1200 Other: Voiding Method Incontinent Incontinent # Voids 3 - Labs CBC & Chem 7: 10/11/16 04:13 10/12/16 06:26 Labs: Abnormal Lab Results - Last 24 Hours (Table) 10/11/16 10/11/16 10/11/16 Range/Units 04:13 11:37 16:47 Chloride (98-107) mmol/L Carbon Dioxide (22-30) mmol/L BUN (9-20) mg/dL Creatinine (0.66-1.25) mg/dL POC Glucose (mg/dL) 190 H 289 H (75-99) mg/dL Hemoglobin A1c 6.9 H (4.2-6.1) % 10/11/16 10/12/16 10/12/16 Range/Units 21:09 06:26 06:31 Chloride 117 H (98-107) mmol/L Carbon Dioxide 17 L (22-30) mmol/L BUN 49 H (9-20) mg/dL Creatinine 3.80 H (0.66-1.25) mg/dL POC Glucose (mg/dL) 168 H 126 H (75-99) mg/dL Hemoglobin A1c (4.2-6.1) % Microbiology - Last 24 Hours (Table) 10/11/16 06:43 Urine Culture - Preliminary Urine,Clean Catch Assessment and Plan Plan: Assessment: #1. Chronic kidney disease stage IV secondary to nephrosclerosis with baseline creatinine in the range of 3-4 for the last 2 years. Urinalysis noted to be benign. No evidence of hydronephrosis. Rule out urinary retention. #2. Colon mass with metastatic disease to the liver. Scheduled for liver biopsy today. #3. Chronic kidney disease mineral bone disease. #4. Metabolic acidosis secondary to chronic kidney disease. Plan: Continue normal saline at 100 mL an hour. Maintain sodium bicarbonate supplementation. Avoid nephrotoxic agents and hypotensive episodes. Check postvoid residual. To insert Barth greater than 250 mL present. Repeat electrolytes in the morning. Patient was also taking Bactrim prior to admission. It has been discontinued.
[2016-10-12] MEDS: SODIUM BICARBONATE TAB 650 MG TAB PO SCH ×2 (08:57→21:41)
[2016-10-12] MEDS: TAMSULOSIN 0.4 MG CAP.ER.24H PO SCH (08:57)
[2016-10-12] MEDS: FINASTERIDE 5 MG TAB PO SCH (08:58)
[2016-10-12] MEDS: MULTIVITAMINS, THERA 1 EACH TAB PO SCH (08:58)
[2016-10-12] MEDS: LINAGLIPTIN 5 MG TABLET PO SCH (08:58)
[2016-10-12] MEDS: ATORVASTATIN 40 MG TAB PO SCH (08:58)
[2016-10-12] MEDS: OXcarbazepine 300 MG TAB PO SCH ×2 (08:58→21:41)
[2016-10-12] MEDS: DOCUSATE 100 MG CAP PO SCH (08:58)
[2016-10-12] MEDS: MINERAL OIL-WHITE PETROLATUM 120 GM JAR TOPICAL SCH (08:59)
[2016-10-12] MEDS: POLYETHYLENE GLYCOL 3350 17 GM POWD.PACK PO SCH ×2 (08:59→21:41)
[2016-10-12] MEDS ORDERED: CALCITRIOL 0.25 MCG CAP PO SCH (09:00)
[2016-10-12 10:11] LABS: INR 1.2 (<1.2); Prothrombin Time 12.2 sec (9.0-12.0)
--- NOTE | 2016-10-12 10:43 | ECHOF ---
Referral Reason:elevated troponin MEASUREMENTS -------- HEIGHT: 182.9 cm WEIGHT: 94.3 kg BP: 108/70 IVSd: 1.3 cm (0.6 - 1.1) LVIDd: 5.1 cm (3.9 - 5.3) LVPWd: 1.3 cm (0.6 - 1.1) IVSs: 1.6 cm LVIDs: 3.8 cm LVPWs: 1.6 cm LA Diam: 3.3 cm (2.7 - 3.8) Ao Diam: 4.1 cm (2.0 - 3.7) AV Cusp: 2.0 cm (1.5 - 2.6) LA Diam: 3.8 cm (2.7 - 3.8) MV EXCURSION: 22.907 mm (> 18.000) MV EF SLOPE: 28 mm/s (70 - 150) EPSS: 0.6 cm MV E Alli: 0.77 m/s MV DecT: 233 ms MV A Alli: 0.94 m/s MV E/A Ratio: 0.82 FINDINGS -------- Sinus rhythm. This was a technically adequate study. The left ventricular size is normal. There is mild concentric left ventricular hypertrophy. Overall left ventricular systolic function is normal with, an EF between 55 - 60 %. The right ventricle is normal in size. The left atrial size is normal. The right atrial size is normal. The aortic valve is trileaflet and appears structurally normal. Trace amount of aortic regurgitation. The mitral valve is normal. There is trace mitral regurgitation. Mild tricuspid regurgitation present. There is no pulmonic regurgitation present. The aortic root size is normal. There is no pericardial effusion. CONCLUSIONS -------- 1. Sinus rhythm. 2. There is no pericardial effusion. 3. There is mild concentric left ventricular hypertrophy. 4. Overall left ventricular systolic function is normal with, an EF between 55 - 60 %. 5. The left atrial size is normal. 6. The aortic valve is trileaflet and appears structurally normal. 7. Trace amount of aortic regurgitation. 8. There is trace mitral regurgitation. 9. Mild tricuspid regurgitation present. 10. There is no pulmonic regurgitation present. [employer] CHIEF: Rochelle Holloway RDCS
[2016-10-12 11:34] LABS: Glucose,Whole Blood 236 mg/dL (75-99)
[2016-10-12 16:55] LABS: Glucose,Whole Blood 438 mg/dL (75-99)
[2016-10-12] MEDS: cloZAPine 100 MG TAB PO SCH ×2 (17:07→21:41)
[2016-10-12] MEDS: INSULIN LISPRO (humaLOG) 300 UNIT/3 ML VIAL SQ SCH ×2 (18:37→21:40)
[2016-10-12] MEDS: HYDROmorphone 1 MG/ML 1 ML SYRINGE IVP PRN (18:55)
[2016-10-12 20:46] LABS: Glucose,Whole Blood 125 mg/dL (75-99)
--- NOTE | 2016-10-12 22:40 | P.PN ---
Subjective Principal diagnosis: Liver metastasis Patient denies abdominal pain today. He is tolerating his liquid diet. His labs were reviewed. His CEA level is quite elevated at greater than 4000. Objective - Vital Signs Vital signs: Vital Signs Temp 97.5 F L 10/12/16 16:00 Pulse 86 10/12/16 16:00 Resp 16 10/12/16 16:00 BP 126/72 10/12/16 16:00 Pulse Ox 99 10/12/16 16:00 Intake & Output 10/12/16 10/12/16 10/13/16 06:59 18:59 06:59 Intake Total 1200 1400 Balance 1200 1400 Weight 96.3 kg Intake: Oral 1200 1400 Other: Voiding Method Incontinent Incontinent # Voids 3 1 - Exam Abdomen: Soft, mild distention, mild diffuse tenderness - Labs CBC & Chem 7: 10/11/16 04:13 10/12/16 06:26 Labs: Abnormal Lab Results - Last 24 Hours (Table) 10/12/16 10/12/16 10/12/16 Range/Units 06:26 06:31 09:45 PT 12.2 H (9.0-12.0) sec INR 1.2 H (<1.2) Chloride 117 H (98-107) mmol/L Carbon Dioxide 17 L (22-30) mmol/L BUN 49 H (9-20) mg/dL Creatinine 3.80 H (0.66-1.25) mg/dL POC Glucose (mg/dL) 126 H (75-99) mg/dL Carcinoembryonic Ag >4000.0 H (0.0-5.0) ng/mL 10/12/16 10/12/16 10/12/16 Range/Units 11:32 16:51 20:45 PT (9.0-12.0) sec INR (<1.2) Chloride (98-107) mmol/L Carbon Dioxide (22-30) mmol/L BUN (9-20) mg/dL Creatinine (0.66-1.25) mg/dL POC Glucose (mg/dL) 236 H 438 H 125 H (75-99) mg/dL Carcinoembryonic Ag (0.0-5.0) ng/mL Microbiology - Last 24 Hours (Table) 10/11/16 06:43 Urine Culture - Final Urine,Clean Catch Assessment and Plan (1) Hepatic metastasis Narrative/Plan: Agree with plans for liver biopsy. Colonoscopy to be performed based on those findings. Continue liquid diet for now. Status: Acute
[2016-10-13 05:58] LABS: Glucose,Whole Blood 173 mg/dL (75-99)
[2016-10-13] MEDS: CARVEDILOL 6.25 MG TAB PO SCH ×2 (06:30→16:42)
[2016-10-13] MEDS: INSULIN LISPRO (humaLOG) 300 UNIT/3 ML VIAL SQ SCH ×4 (06:30→20:45)
[2016-10-13] MEDS: glipiZIDE 5 MG TAB PO SCH ×2 (06:30→11:08)
[2016-10-13] MEDS: SEVELAMER 800 MG TAB PO SCH ×2 (06:31→16:42)
[2016-10-13] MEDS: PANTOPRAZOLE 40 MG TABLET PO SCH (06:31)
[2016-10-13 06:49] LABS: Potassium 4.7 mmol/L (3.5-5.1)
--- NOTE | 2016-10-13 08:23 | P.PN ---
Subjective Patient is seen in follow-up for acute kidney injury on chronic kidney disease. Patient has chronic knee disease stage IV with baseline creatinine in the range of 3-4. His creatinine today is improved to 3.6. Patient presented with abdominal pain and is noted to have a colonic mass with probable metastatic disease to the liver. Admits to good urine output. No vomiting or diarrhea. Abdominal pain is improved. Vital signs are stable. General: The patient appeared well nourished and normally developed. HEENT: Head exam is unremarkable. Neck is without jugular venous distension. LUNGS: Lungs are clear to auscultation and percussion. Breath sounds decreased. HEART: Rate and Rhythm are regular. First and second heart sounds normal. No murmurs, rubs or gallops. ABDOMEN: Abdominal exam reveals normal bowel sounds. Non-tender and non- distended. No evidence of peritonitis. EXTREMITITES: No clubbing, cyanosis, or edema. Objective - Vital Signs Vital signs: Vital Signs Temp 97.6 F 10/13/16 08:16 Pulse 85 10/13/16 08:16 Resp 16 10/13/16 08:16 BP 122/74 10/13/16 08:16 Pulse Ox 100 10/13/16 08:16 Intake & Output 10/12/16 10/13/16 10/13/16 18:59 06:59 18:59 Intake Total 1400 500 Balance 1400 500 Weight 98.6 kg Intake: Intake, IV Titration 500 Amount Sodium Chloride 0.9% 1, 500 000 ml @ 100 mls/hr IV . Q10H [facility] Rx#:[id number] Oral 1400 Other: Voiding Method Incontinent Incontinent Incontinent # Voids 1 - Labs CBC & Chem 7: 10/11/16 04:13 10/13/16 06:06 Labs: Abnormal Lab Results - Last 24 Hours (Table) 10/12/16 10/12/16 10/12/16 Range/Units 06:26 09:45 11:32 PT 12.2 H (9.0-12.0) sec INR 1.2 H (<1.2) Sodium (137-145) mmol/L Chloride (98-107) mmol/L Carbon Dioxide (22-30) mmol/L BUN (9-20) mg/dL Creatinine (0.66-1.25) mg/dL Glucose (74-99) mg/dL POC Glucose (mg/dL) 236 H (75-99) mg/dL Carcinoembryonic Ag >4000.0 H (0.0-5.0) ng/mL 10/12/16 10/12/16 10/13/16 Range/Units 16:51 20:45 05:57 PT (9.0-12.0) sec INR (<1.2) Sodium (137-145) mmol/L Chloride (98-107) mmol/L Carbon Dioxide (22-30) mmol/L BUN (9-20) mg/dL Creatinine (0.66-1.25) mg/dL Glucose (74-99) mg/dL POC Glucose (mg/dL) 438 H 125 H 173 H (75-99) mg/dL Carcinoembryonic Ag (0.0-5.0) ng/mL 10/13/16 Range/Units 06:06 PT (9.0-12.0) sec INR (<1.2) Sodium 146 H (137-145) mmol/L Chloride 117 H (98-107) mmol/L Carbon Dioxide 19 L (22-30) mmol/L BUN 42 H (9-20) mg/dL Creatinine 3.60 H (0.66-1.25) mg/dL Glucose 103 H (74-99) mg/dL POC Glucose (mg/dL) (75-99) mg/dL Carcinoembryonic Ag (0.0-5.0) ng/mL Microbiology - Last 24 Hours (Table) 10/11/16 06:43 Urine Culture - Final Urine,Clean Catch Assessment and Plan Plan: Assessment: #1. Chronic kidney disease stage IV secondary to nephrosclerosis with baseline creatinine in the range of 3-4 for the last 2 years. Urinalysis noted to be benign. No evidence of hydronephrosis. Renal function a little improved with creatinine at 3.6 today. #2. Colon mass with metastatic disease to the liver. Scheduled for liver biopsy today. #3. Chronic kidney disease mineral bone disease. #4. Metabolic acidosis secondary to chronic kidney disease. Improved. #5. Mild hypernatremia secondary to lack of oral water intake. Plan: I will change IV fluids to half-normal saline to be run at 75 mL an hour. Maintain sodium bicarbonate supplementation. Avoid nephrotoxic agents and hypotensive episodes. Repeat electrolytes in the morning. Patient was also taking Bactrim prior to admission. It has been discontinued.
[2016-10-13] MEDS: HYDROmorphone 1 MG/ML 1 ML SYRINGE IVP PRN (08:55)
[2016-10-13] MEDS: SODIUM CHLORIDE 0.9% 1,000 ML IV SCH (11:02)
[2016-10-13] MEDS: SODIUM CHLORIDE 0.45% 1,000 ML IV SCH ×2 (11:03→20:45)
[2016-10-13] MEDS: MULTIVITAMINS, THERA 1 EACH TAB PO SCH (11:06)
[2016-10-13] MEDS: LINAGLIPTIN 5 MG TABLET PO SCH (11:06)
[2016-10-13] MEDS: TAMSULOSIN 0.4 MG CAP.ER.24H PO SCH (11:06)
[2016-10-13] MEDS: OXcarbazepine 300 MG TAB PO SCH ×2 (11:06→20:40)
[2016-10-13] MEDS: SODIUM BICARBONATE TAB 650 MG TAB PO SCH ×2 (11:07→20:40)
[2016-10-13] MEDS: FINASTERIDE 5 MG TAB PO SCH (11:07)
[2016-10-13] MEDS: MINERAL OIL-WHITE PETROLATUM 120 GM JAR TOPICAL SCH (11:07)
[2016-10-13] MEDS: DOCUSATE 100 MG CAP PO SCH (11:07)
[2016-10-13] MEDS: ATORVASTATIN 40 MG TAB PO SCH (11:07)
[2016-10-13] MEDS: POLYETHYLENE GLYCOL 3350 17 GM POWD.PACK PO SCH ×2 (11:07→20:40)
[2016-10-13 11:35] LABS: Glucose,Whole Blood 125 mg/dL (75-99)
--- NOTE | 2016-10-13 15:29 | PN ---
SUBJECTIVE: White male, [id number] with metastatic what looks like liver cancer coming from the colon. Surgical consult is still pending and workup is pending. He is supposed to get a biopsy of his liver with needle biopsy tomorrow. CARDIOVASCULAR: S1, S2. LUNGS: Clear. PSYCH: Fair mood and affect. GI: ( ) firm, obese. EXTREMITIES: No cyanosis, clubbing or edema. ASSESSMENT: 1. Colon cancer to the liver metastasis most likely needle biopsy of the liver will be done tomorrow. 2. Acute renal failure. 3. Schizophrenia. 4. Generalized debility. 5. Protein calorie malnutrition. Needle biopsy will be done. Plan for outpatient chemoradiation will be done. Prognosis extremely guarded. MTDD
[2016-10-13 16:38] LABS: Glucose,Whole Blood 243 mg/dL (75-99)
[2016-10-13] MEDS: cloZAPine 100 MG TAB PO SCH ×2 (16:41→20:40)
--- NOTE | 2016-10-13 18:37 | P.PN ---
Subjective Principal diagnosis: Colon cancer Is resting comfortably in his bed. He denies any significant abdominal pain. Family has had a liver biopsy performed. On exam is lesser stable. His abdomen soft. Metastatic cancer. Patient will need upper and lower endoscopy. Objective - Vital Signs Vital signs: Vital Signs Temp 97.6 F 10/13/16 16:00 Pulse 85 10/13/16 16:00 Resp 16 10/13/16 16:00 BP 104/62 10/13/16 16:00 Pulse Ox 98 10/13/16 16:00 Intake & Output 10/12/16 10/13/16 10/13/16 18:59 06:59 18:59 Intake Total 1400 500 840 Output Total 2 Balance 1400 500 838 Weight 98.6 kg Intake: Intake, IV Titration 500 Amount Sodium Chloride 0.9% 1, 500 000 ml @ 100 mls/hr IV . Q10H [facility] Rx#:[id number] Oral 1400 840 Output: Stool 2 Other: Voiding Method Incontinent Incontinent Diaper # Voids 1 1 # Bowel Movements 1 - Labs CBC & Chem 7: 10/11/16 04:13 10/13/16 06:06 Labs: Abnormal Lab Results - Last 24 Hours (Table) 10/12/16 10/13/16 10/13/16 Range/Units 20:45 05:57 06:06 Sodium 146 H (137-145) mmol/L Chloride 117 H (98-107) mmol/L Carbon Dioxide 19 L (22-30) mmol/L BUN 42 H (9-20) mg/dL Creatinine 3.60 H (0.66-1.25) mg/dL Glucose 103 H (74-99) mg/dL POC Glucose (mg/dL) 125 H 173 H (75-99) mg/dL 10/13/16 10/13/16 Range/Units 11:32 16:37 Sodium (137-145) mmol/L Chloride (98-107) mmol/L Carbon Dioxide (22-30) mmol/L BUN (9-20) mg/dL Creatinine (0.66-1.25) mg/dL Glucose (74-99) mg/dL POC Glucose (mg/dL) 125 H 243 H (75-99) mg/dL
[2016-10-13] MEDS: ONDANSETRON 4 MG/2 ML VIAL IVP PRN (20:40)
[2016-10-13 20:46] LABS: Glucose,Whole Blood 286 mg/dL (75-99)
[2016-10-14 05:51] LABS: Glucose,Whole Blood 204 mg/dL (75-99)
[2016-10-14] MEDS: PANTOPRAZOLE 40 MG TABLET PO SCH (06:19)
[2016-10-14] MEDS: glipiZIDE 5 MG TAB PO SCH (06:19)
[2016-10-14] MEDS: INSULIN LISPRO (humaLOG) 300 UNIT/3 ML VIAL SQ SCH ×4 (06:19→21:31)
[2016-10-14] MEDS: SEVELAMER 800 MG TAB PO SCH ×2 (06:19→17:47)
[2016-10-14] MEDS: CARVEDILOL 6.25 MG TAB PO SCH ×2 (06:19→16:16)
[2016-10-14 07:14] LABS: Calcium 8.8 mg/dL (8.4-10.2); Potassium 4.5 mmol/L (3.5-5.1)
[2016-10-14] MEDS: OXcarbazepine 300 MG TAB PO SCH ×2 (08:19→21:31)
[2016-10-14] MEDS: SODIUM BICARBONATE TAB 650 MG TAB PO SCH ×2 (08:19→21:31)
[2016-10-14] MEDS: MINERAL OIL-WHITE PETROLATUM 120 GM JAR TOPICAL SCH (08:19)
[2016-10-14] MEDS: DOCUSATE 100 MG CAP PO SCH (08:20)
[2016-10-14] MEDS: LINAGLIPTIN 5 MG TABLET PO SCH (08:20)
[2016-10-14] MEDS: FINASTERIDE 5 MG TAB PO SCH (08:20)
[2016-10-14] MEDS: POLYETHYLENE GLYCOL 3350 17 GM POWD.PACK PO SCH ×3 (08:21→19:58)
[2016-10-14] MEDS: TAMSULOSIN 0.4 MG CAP.ER.24H PO SCH (08:21)
[2016-10-14] MEDS: SODIUM CHLORIDE 0.45% 1,000 ML IV SCH (08:22)
[2016-10-14] MEDS: MULTIVITAMINS, THERA 1 EACH TAB PO SCH (08:22)
--- NOTE | 2016-10-14 09:13 | PN ---
Patient is seen for follow up for acute kidney injury. He was found to have colonic mass and liver metastasis and he had biopsy yesterday. Patient does have CKD stage IV. His serum creatinine has been staying at about 3.6 to 3.3 mg/ dL. There was an element of acute kidney injury, which seems to be improving slightly. On examination: Blood pressure is 106//61, heart rate 77 per minute. He is afebrile. Examination of the heart: S1, S2. Examination of lungs: Bilateral breath sounds are heard. Abdomen is soft, distended, nontender. Examination of lower extremities showed no significant edema. 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 Labs show sodium 146, potassium 4.5, BUN 41, serum creatinine 3.39. ASSESSMENT: 1. Acute kidney injury, prerenal currently improving maintained on IV fluids. 2. Mild hypernatremia. Will change IV fluids to half-normal saline. 3. Colonic mass with liver metastasis, status post biopsy yesterday. 4. Chronic kidney disease NKF, stage IV, with baseline creatinine about 3 mg/ dL secondary to nephrosclerosis. PLAN: Change IV fluids to half-normal saline. Repeat labs in a.m. Increase oral intake. MTDD
[2016-10-14 12:17] LABS: Glucose,Whole Blood 150 mg/dL (75-99)
--- NOTE | 2016-10-14 12:39 | P.PN ---
Progress Note - Text The patient is resting comfortably in his bed. He has no significant complaints of abdominal pain. On exam patient esophagitis. His abdomen soft nontender. Metastatic liver metastases. The patient is awaiting his fine-needle aspiration biopsy results.
[2016-10-14] MEDS: ATORVASTATIN 40 MG TAB PO SCH (14:02)
[2016-10-14] MEDS: cloZAPine 100 MG TAB PO SCH ×2 (16:15→21:31)
[2016-10-14 17:13] LABS: Glucose,Whole Blood 133 mg/dL (75-99)
[2016-10-14 20:53] LABS: Glucose,Whole Blood 189 mg/dL (75-99)
[2016-10-15] MEDS: SODIUM CHLORIDE 0.45% 1,000 ML IV SCH ×2 (01:30→08:02)
[2016-10-15 06:09] LABS: Glucose,Whole Blood 149 mg/dL (75-99)
[2016-10-15 07:19] LABS: ALT 100 U/L (21-72); AST 124 U/L (17-59)
--- NOTE | 2016-10-15 07:54 | CT ---
EXAMINATION TYPE: CT brain wo con DATE OF EXAM: 10/15/2016 COMPARISON: NONE HISTORY: Altered mental status CT DLP: 1064.[address] of the brain was performed. The ventricles, basal cisterns and sulci overlying the cerebral convexities demonstrate mild enlargem ent. There is vague decreased attenuation posterior left MCA territory. Acute vascular insult is diff icult to exclude. Correlate clinically. There is no evidence for intracranial hemorrhage or sulcal effacement. There is decreased attenuation about the periventricular white matter and deep white matter of both c erebral hemispheres, compatible with chronic small vessel ischemia. Differential diagnosis does inclu de demyelination. No mass effects are seen.No midline shift. Osseous calvarium is intact. If symptoms persist consider MRI. IMPRESSION: 1.There is vague decreased attenuation posterior left MCA territory. Acute vascular insult is difficu lt to exclude. Correlate clinically. No evidence for hemorrhage. 2. Age related atrophic and chronic small vessel ischemic change.
[2016-10-15] MEDS: LINAGLIPTIN 5 MG TABLET PO SCH ×2 (08:03→08:15)
[2016-10-15] MEDS: glipiZIDE 5 MG TAB PO SCH ×2 (08:03→08:14)
[2016-10-15] MEDS: CARVEDILOL 6.25 MG TAB PO SCH ×3 (08:03→14:03)
[2016-10-15] MEDS: PANTOPRAZOLE 40 MG TABLET PO SCH ×2 (08:04→08:14)
[2016-10-15] MEDS: INSULIN LISPRO (humaLOG) 300 UNIT/3 ML VIAL SQ SCH ×4 (08:04→21:08)
[2016-10-15] MEDS: SODIUM BICARBONATE TAB 650 MG TAB PO SCH ×3 (08:04→21:08)
[2016-10-15] MEDS: FINASTERIDE 5 MG TAB PO SCH ×2 (08:04→08:15)
[2016-10-15] MEDS: DOCUSATE 100 MG CAP PO SCH (08:05)
[2016-10-15] MEDS: SEVELAMER 800 MG TAB PO SCH ×2 (08:06→14:03)
[2016-10-15] MEDS: MINERAL OIL-WHITE PETROLATUM 120 GM JAR TOPICAL SCH (08:06)
[2016-10-15] MEDS: OXcarbazepine 300 MG TAB PO SCH ×3 (08:06→21:08)
[2016-10-15] MEDS: TAMSULOSIN 0.4 MG CAP.ER.24H PO SCH ×2 (08:06→08:15)
[2016-10-15] MEDS: POLYETHYLENE GLYCOL 3350 17 GM POWD.PACK PO SCH ×2 (08:06→21:08)
[2016-10-15] MEDS: MULTIVITAMINS, THERA 1 EACH TAB PO SCH (08:07)
--- NOTE | 2016-10-15 10:02 | PN ---
SUBJECTIVE: 56-year-old white male with acute renal failure, hepatic mass, hepatic cancer secondary to colon cancer, generalized debility, schizoaffective disorder, awaiting for biopsy reports. His abdominal pain is improving. He is increasing his diet. CARDIOVASCULAR: S1, S2. LUNGS: Clear. GI: Distended, but not as tender, not as firm. HEME: Negative Homans. ASSESSMENT: 1. Colon cancer with hepatic metastasis status post liver biopsy. 2. Acute on chronic renal failure. 3. Schizoaffective. 4. Generalized debility. Wait for liver biopsy results ands treatment with chemo and radiation. Follow up as an outpatient. [facility]
--- NOTE | 2016-10-15 10:11 | P.PN ---
Progress Note - Text The patient is resting comfortably in bed. He appears to be quite sleepy today. He has no complaints. On exam his vital signs are stable. His abdomen soft. Liver biopsy results are still pending.
[2016-10-15 12:08] LABS: Glucose,Whole Blood 134 mg/dL (75-99)
[2016-10-15] MEDS: cloZAPine 100 MG TAB PO SCH ×3 (12:17→21:08)
--- NOTE | 2016-10-15 12:17 | PN ---
The patient is seen for follow up for acute kidney injury. He, overnight, has had significant changes in his mentation and a CAT scan showed evidence of decreased attenuation in posterior left MCA territory. Clinically the patient just opens his eyes on verbal stimuli, he is not able to communicate. He is maintained on IV fluids with saline currently at 0.5 normal saline at 75 mL an hour. On examination, blood pressure is 121/70, heart rate 83 per minute, patient is afebrile. HEART: S1/S2. LUNGS: Bilateral breath sounds are heard. ABDOMEN: Soft, nontender. 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 He barely opens his eyes. He is not moving any extremities at this time. Labs were not drawn today. ASSESSMENT: 1. Acute kidney injury, nonoliguric, maintained on IV fluids. No labs from today. 2. Mild hypernatremia, currently maintained on 0.5 normal saline. 3. Mental status changes with CAT scan showing evidence of ischemic stroke. 4. Colonic mass with liver metastasis status post liver biopsy, results are pending. 5. Chronic kidney disease stage 4 with baseline creatinine about 3 mg/dl secondary to nephrosclerosis. PLAN: Continue with 0.5 normal saline. Overall prognosis is guarded. Given the new development of stroke, code status needs to be addressed given the underlying colonic mass with liver mets. MTDD
--- NOTE | 2016-10-15 15:26 | P.CNNES ---
History of Present Illness Consult date: 10/15/16 Reason for Consult: Patient being evaluated for altered mental status and lethargy. History of Present Illness: This patient is a 56-year-old right-handed white male who was initially transferred from [facility] for evaluation of the cecal mass with possible liver metastatic lesions. Patient has a history of mental disability and is impaired Patient was admitted to the hospital in transfer on 10/10/2016. Apparently he was at that time able to answer simple questions. He had a poor appetite and some degree of weight loss. Patient underwent liver biopsy the results of which are still pending. Apparently scanning does reveal evidence of possible metastatic lesions to the liver. Today the patient was noted to have increasing lethargy. He was sent for a computed tomography scan of the brain which revealed a vague area of hypodensity in the left MCA territory suggesting acute stroke. Patient is a very poor historian. He is unable to give any accurate history at this time and apparently has been mostly aphasic since early this morning. He remains lethargic but arousable. As noted his liver biopsies are still pending. Surgery is monitoring him closely. Patient is being seen by oncology for colon cancer and hepatic meta-stasis. He does have history of chronic renal failure as well. His overall prognosis at this time remains very guarded. Given his new development of possible acute left MCA stroke his CODE STATUS needs to be addressed given the underlying colon cancer and possible liver metastases. The patient was examined today but remains aphasic and lethargic at times. He is following only simple commands. Neurology is now been consulted for further evaluation and recommendations. Review of Systems Constitutional: Denies chills, Denies fever Eyes: denies blurred vision, denies pain Ears, nose, mouth and throat: Denies headache, Denies sore throat Cardiovascular: Denies chest pain, Denies shortness of breath Respiratory: Denies cough Gastrointestinal: Denies abdominal pain, Denies diarrhea, Denies nausea, Denies vomiting Musculoskeletal: Denies myalgias Integumentary: Denies pruritus, Denies rash Neurological: Reports aphasia, Reports confusion, Reports hearing difficulties, Denies numbness, Denies weakness Psychiatric: Denies anxiety, Denies depression Endocrine: Denies fatigue, Denies weight change Past Medical History Past Medical History: Diabetes Mellitus, Hyperlipidemia, Hypertension, Prostate Disorder Additional Past Medical History / Comment(s): constipation, past anemia, deprssion, schizoprenia History of Any Multi-Drug Resistant Organisms: None Reported Past Surgical History: Tonsillectomy Past Anesthesia/Blood Transfusion Reactions: No Reported Reaction Additional Past Anesthesia/Blood Transfusion Reaction / Comment(s): pt is disabled-lives at [facility] [id number]. Has [facility] public guardian ethel garvin [phone]. Smoking Status: Former smoker - Past Family History Father Family Medical History: Unable to Obtain Mother History Unknown: Yes Medications and Allergies Home Medications Medication Instructions Recorded Confirmed Type Atorvastatin [Lipitor] 40 mg PO DAILY 06/27/14 10/10/16 History OXcarbazepine [Trileptal] 300 mg PO BID 06/27/14 10/10/16 History Polyethylene Glycol 3350 [Miralax] 17 gm PO BID 06/27/14 10/10/16 History Sevelamer [Renvela] 800 mg PO BID 06/27/14 10/10/16 History Tamsulosin HCl [Flomax] 0.4 mg PO DAILY 06/27/14 10/10/16 History cloZAPine [Clozaril] 400 mg PO HS 06/27/14 10/10/16 History sitaGLIPtin [Januvia] 25 mg PO DAILY 06/27/14 10/10/16 History Calcitriol 0.25 mcg PO Q7D 10/10/16 10/10/16 History Carvedilol [Coreg] 6.25 mg PO BID 10/10/16 10/10/16 History Colloidal Oatmeal [Eucerin Eczema 1 applic TOPICAL DAILY 10/10/16 10/10/16 History Relief] Docusate [Colace] 100 mg PO DAILY 10/10/16 10/10/16 History Finasteride [Proscar] 5 mg PO DAILY 10/10/16 10/10/16 History Multivitamins, Thera [Multivitamin 1 tab PO DAILY 10/10/16 10/10/16 History (formulary)] Sulfamethoxazole/Trimethoprim 1 tab PO BID 10/10/16 10/10/16 History [Bactrim DS 800-160 mg] cloZAPine [Clozaril] 200 mg PO DAILY@1500 10/10/16 10/10/16 History glipiZIDE [Glucotrol] 5 mg PO DAILY 10/10/16 10/10/16 History Allergies Allergy/AdvReac Type Severity Reaction Status Date / Time No Known Allergies Allergy Verified 10/10/16 15:19 Physical Examination - Vital Signs Vital Signs: Vital Signs Temp Pulse Resp BP Pulse Ox 10/15/16 08:00 98 F 83 18 116/74 98 10/15/16 04:00 99.3 F 83 16 121/70 98 10/14/16 20:00 97.8 F 82 16 129/71 100 10/14/16 16:00 79 18 99/60 98 10/14/16 12:00 84 18 103/66 99 Intake and Output 10/14/16 10/15/16 10/15/16 22:59 06:59 14:59 Output Total 400 Balance -400 Output: Urine 400 Other: Voiding Method Diaper # Voids 4 2 # Bowel Movements 4 1 Weight 98.9 kg - Constitutional General appearance: average body habitus, cooperative - EENT EENT: PERRL, mucous membranes moist - Respiratory Respiratory: lungs clear, normal breath sounds - Cardiovascular Cardiovascular: regular rate, normal S1, normal S2 Extremities: no peripheral edema bilaterally - Gastrointestinal Gastrointestinal: normoactive bowel sounds - Integumentary Integumentary: normal - Neurologic Cranial nerve examination: PERRL, EOMI, VFF, V1/V2/V3 grossly intact, tongue midline, intact gag reflex, facial droop (Patient has right facial asymmetry), normal palatal elevation Speech examination: intact Sensorimotor examination: intact Motor examination - right side: 3/5: biceps, triceps, wrist flexion, wrist extension, body and frame technician, hip flexors, knee extensors, dorsiflexion, toe extension (EHL) , plantarflexion Motor examination - left side: 3/5: biceps, triceps, wrist flexion, wrist extension, body and frame technician, hip flexors, knee extensors, dorsiflexion, toe extension (EHL) , plantarflexion Detailed sensory examination: intact Reflex and gait examination: intact Reflexes: 1+: ankle, bicep, knee, tricep - Musculoskeletal Musculoskeletal: no pain - Psychiatric Psychiatric: mood/affect appropriate, cooperative Results - Laboratory Findings CBC and BMP: 10/11/16 04:13 10/14/16 06:39 Abnormal Lab Findings: Abnormal Labs 10/10/16 10/10/16 10/10/16 16:45 16:45 16:45 WBC 15.2 H RBC 3.66 L Hgb 11.0 L Hct 33.5 L Neutrophils # 12.6 H Lymphocytes # PT INR Sodium Chloride 109 H Carbon Dioxide 21 L BUN 51 H Creatinine 3.90 H Glucose 150 H POC Glucose (mg/dL) Hemoglobin A1c AST 91 H ALT 101 H Alkaline Phosphatase 537 H CK-MB (CK-2) 3.0 H* Troponin I 0.094 H* Total Protein 5.5 L Albumin 3.1 L Lipase 521 H Carcinoembryonic Ag Urine Protein 10/10/16 10/10/16 10/11/16 21:56 22:05 04:13 WBC RBC Hgb Hct Neutrophils # Lymphocytes # PT INR Sodium Chloride 114 H Carbon Dioxide 16 L BUN 51 H Creatinine 3.70 H Glucose 109 H POC Glucose (mg/dL) 159 H Hemoglobin A1c AST 99 H ALT 98 H Alkaline Phosphatase 546 H CK-MB (CK-2) Troponin I 0.095 H* Total Protein 5.2 L Albumin 2.8 L Lipase Carcinoembryonic Ag Urine Protein 10/11/16 10/11/16 10/11/16 04:13 04:13 04:13 WBC RBC 3.51 L Hgb 10.2 L Hct 32.7 L Neutrophils # 8.8 H Lymphocytes # 0.8 L PT INR Sodium Chloride Carbon Dioxide BUN Creatinine Glucose POC Glucose (mg/dL) Hemoglobin A1c 6.9 H AST ALT Alkaline Phosphatase CK-MB (CK-2) Troponin I 0.107 H* Total Protein Albumin Lipase Carcinoembryonic Ag Urine Protein 10/11/16 10/11/16 10/11/16 05:49 06:43 11:37 WBC RBC Hgb Hct Neutrophils # Lymphocytes # PT INR Sodium Chloride Carbon Dioxide BUN Creatinine Glucose POC Glucose (mg/dL) 129 H 190 H Hemoglobin A1c AST ALT Alkaline Phosphatase CK-MB (CK-2) Troponin I Total Protein Albumin Lipase Carcinoembryonic Ag Urine Protein Trace H 10/11/16 10/11/16 10/12/16 16:47 21:09 06:26 WBC RBC Hgb Hct Neutrophils # Lymphocytes # PT INR Sodium Chloride 117 H Carbon Dioxide 17 L BUN 49 H Creatinine 3.80 H Glucose POC Glucose (mg/dL) 289 H 168 H Hemoglobin A1c AST ALT Alkaline Phosphatase CK-MB (CK-2) Troponin I Total Protein Albumin Lipase Carcinoembryonic Ag >4000.0 H Urine Protein 10/12/16 10/12/16 10/12/16 06:31 09:45 11:32 WBC RBC Hgb Hct Neutrophils # Lymphocytes # PT 12.2 H INR 1.2 H Sodium Chloride Carbon Dioxide BUN Creatinine Glucose POC Glucose (mg/dL) 126 H 236 H Hemoglobin A1c AST ALT Alkaline Phosphatase CK-MB (CK-2) Troponin I Total Protein Albumin Lipase Carcinoembryonic Ag Urine Protein 10/12/16 10/12/16 10/13/16 16:51 20:45 05:57 WBC RBC Hgb Hct Neutrophils # Lymphocytes # PT INR Sodium Chloride Carbon Dioxide BUN Creatinine Glucose POC Glucose (mg/dL) 438 H 125 H 173 H Hemoglobin A1c AST ALT Alkaline Phosphatase CK-MB (CK-2) Troponin I Total Protein Albumin Lipase Carcinoembryonic Ag Urine Protein 10/13/16 10/13/16 10/13/16 06:06 11:32 16:37 WBC RBC Hgb Hct Neutrophils # Lymphocytes # PT INR Sodium 146 H Chloride 117 H Carbon Dioxide 19 L BUN 42 H Creatinine 3.60 H Glucose 103 H POC Glucose (mg/dL) 125 H 243 H Hemoglobin A1c AST ALT Alkaline Phosphatase CK-MB (CK-2) Troponin I Total Protein Albumin Lipase Carcinoembryonic Ag Urine Protein 10/13/16 10/14/16 10/14/16 20:45 05:50 06:39 WBC RBC Hgb Hct Neutrophils # Lymphocytes # PT INR Sodium 146 H Chloride 115 H Carbon Dioxide 20 L BUN 41 H Creatinine 3.39 H Glucose 153 H POC Glucose (mg/dL) 286 H 204 H Hemoglobin A1c AST ALT Alkaline Phosphatase CK-MB (CK-2) Troponin I Total Protein Albumin Lipase Carcinoembryonic Ag Urine Protein 10/14/16 10/14/16 10/14/16 11:45 16:46 20:52 WBC RBC Hgb Hct Neutrophils # Lymphocytes # PT INR Sodium Chloride Carbon Dioxide BUN Creatinine Glucose POC Glucose (mg/dL) 150 H 133 H 189 H Hemoglobin A1c AST ALT Alkaline Phosphatase CK-MB (CK-2) Troponin I Total Protein Albumin Lipase Carcinoembryonic Ag Urine Protein 10/15/16 10/15/16 06:07 06:54 WBC RBC Hgb Hct Neutrophils # Lymphocytes # PT INR Sodium Chloride Carbon Dioxide BUN Creatinine Glucose POC Glucose (mg/dL) 149 H Hemoglobin A1c AST 124 H ALT 100 H Alkaline Phosphatase CK-MB (CK-2) Troponin I Total Protein Albumin Lipase Carcinoembryonic Ag Urine Protein Assessment and Plan (1) Left acute arterial ischemic stroke, MCA (middle cerebral artery) Status: Acute Code(s): I63.512 - CEREB INFRC D/T UNSP OCCLS OR STENOS OF LEFT MID CEREB ART (2) Acute renal failure (ARF) Status: Acute Code(s): N17.9 - ACUTE KIDNEY FAILURE, UNSPECIFIED (3) Hepatic metastasis Status: Acute Code(s): C78.7 - SECONDARY MALIG NEOPLASM OF LIVER AND INTRAHEPATIC BILE DUCT (4) Mass of cecum Status: Acute Code(s): K63.9 - DISEASE OF INTESTINE, UNSPECIFIED Plan: This patient is a 56-year-old male who was seen in neurology consultation for altered mental status. Patient apparently showed significant lethargy early this morning. He was sent for a computed tomography scan of the brain which reveals a hypodensity in the left MCA territory. We have recommended a MRI of the brain for further evaluation. Patient is being evaluated for possibility of colon cancer with metastatic lesions to the liver. He underwent a liver biopsy the results of which are still pending. Oncology and general surgery or following the patient closely. The patient is encephalopathic at this time. He is also globally aphasic. We will await his MRI results and we'll give further recommendations. His overall prognosis at this time remains very guarded. Would consider cold status on this patient given his multiple complex medical issues. We will continue to follow his neurological condition closely during this admission. Time with Patient: Greater than 30
[2016-10-15 17:37] LABS: Glucose,Whole Blood 130 mg/dL (75-99)
--- NOTE | 2016-10-15 19:27 | CT ---
EXAMINATION TYPE: CT guided FNA DATE OF EXAM: 10/13/2016 COMPARISON: NONE HISTORY: Liver mass CT DLP: 1715mGycm PROCEDURE: The risks, applications, benefits and alternatives, were discussed with the patient and questions wer e answered. Informed consent was obtained. The patient was placed supine on the fluoroscopic table, prepped and draped in the usual sterile fashion. A 22-gauge system was utilized with direct passage of the needle into the left lobe liver lesion und er CT guidance. Samples were obtained with fine needle aspiration. Pathology confirmed adequate jens ple. The patient was stable throughout procedure and remained stable upon discharge from radiology. All e lements of maximal barrier and sterile technique were utilized. IMPRESSION: 1. Successful left lobe liver mass fine needle aspiration under CT guidance.
[2016-10-15 20:05] LABS: Glucose,Whole Blood 133 mg/dL (75-99)
[2016-10-16] MEDS: SODIUM CHLORIDE 0.45% 1,000 ML IV SCH (05:47)
[2016-10-16 07:19] LABS: Glucose,Whole Blood 176 mg/dL (75-99)
[2016-10-16] MEDS ORDERED: FUROSEMIDE 10 MG/ML 4 ML VIAL IV STA (08:09)
[2016-10-16 08:10] VITALS: BP 123/73; RESP 38; TEMP 97.7
[2016-10-16] MEDS: glipiZIDE 5 MG TAB PO SCH (08:44)
[2016-10-16] MEDS: INSULIN LISPRO (humaLOG) 300 UNIT/3 ML VIAL SQ SCH ×2 (08:44→11:48)
[2016-10-16] MEDS: CARVEDILOL 6.25 MG TAB PO SCH (08:44)
[2016-10-16] MEDS: MINERAL OIL-WHITE PETROLATUM 120 GM JAR TOPICAL SCH (08:45)
[2016-10-16] MEDS: LINAGLIPTIN 5 MG TABLET PO SCH (08:45)
[2016-10-16] MEDS: SEVELAMER 800 MG TAB PO SCH (08:45)
[2016-10-16] MEDS: PANTOPRAZOLE 40 MG TABLET PO SCH (08:45)
[2016-10-16] MEDS: TAMSULOSIN 0.4 MG CAP.ER.24H PO SCH (08:45)
[2016-10-16] MEDS: POLYETHYLENE GLYCOL 3350 17 GM POWD.PACK PO SCH (08:45)
[2016-10-16] MEDS: FINASTERIDE 5 MG TAB PO SCH (08:45)
[2016-10-16] MEDS: DOCUSATE 100 MG CAP PO SCH (08:45)
[2016-10-16] MEDS: SODIUM BICARBONATE TAB 650 MG TAB PO SCH (08:45)
[2016-10-16] MEDS: OXcarbazepine 300 MG TAB PO SCH (08:46)
[2016-10-16] MEDS: IPRATROPIUM-ALBUTEROL 3 ML NEB INHALATION SCH ×2 (09:03→12:20)
--- NOTE | 2016-10-16 09:59 | P.PN ---
Subjective Patient is seen in follow-up for acute kidney injury on chronic kidney disease. Patient has chronic knee disease stage IV with baseline creatinine in the range of 3-4. His creatinine was down to 3.39 as of October 14. Patient presented with abdominal pain and is noted to have a colonic mass with probable metastatic disease to the liver. He is nonoliguric. Patient is not a reliable historian. He had an acute left MCA CVA this admission. He also underwent a liver biopsy for which the results are pending. Vital signs are stable. General: The patient appeared well nourished and normally developed. HEENT: Head exam is unremarkable. Neck is without jugular venous distension. LUNGS: Scattered rhonchi. Breath sounds decreased. HEART: Rate and Rhythm are regular. First and second heart sounds normal. No murmurs, rubs or gallops. ABDOMEN: Abdominal exam reveals normal bowel sounds. Non-tender and non- distended. No evidence of peritonitis. EXTREMITITES: No clubbing, cyanosis, or edema. Objective - Vital Signs Vital signs: Vital Signs Temp 97.7 F 10/16/16 07:00 Pulse 122 H 10/16/16 09:14 Resp 38 H 10/16/16 07:00 BP 123/73 10/16/16 07:00 Pulse Ox 88 L 10/16/16 09:05 Intake & Output 10/15/16 10/16/16 10/16/16 18:59 06:59 18:59 Intake Total 270 680 Output Total 1 Balance 269 680 Weight 89.5 kg Intake: IV 680 Sodium Chloride 0.45% 1, 680 000 ml @ 75 mls/hr IV . [id number] [facility] Rx#:[id number] Intake, IV Titration 270 Amount Sodium Chloride 0.45% 1, 270 000 ml @ 75 mls/hr IV . [id number] [facility] Rx#:[id number] Output: Urine 1 Other: Voiding Method Diaper Diaper Diaper Incontinent Incontinent # Voids 1 1 1 - Labs CBC & Chem 7: 10/11/16 04:13 10/14/16 06:39 Labs: Abnormal Lab Results - Last 24 Hours (Table) 10/15/16 10/15/16 10/15/16 Range/Units 12:06 : 20:01 POC Glucose (mg/dL) 134 H 130 H 133 H (75-99) mg/dL 10/16/16 Range/Units 07:10 POC Glucose (mg/dL) 176 H (75-99) mg/dL Assessment and Plan Plan: Assessment: #1. Chronic kidney disease stage IV secondary to nephrosclerosis with baseline creatinine in the range of 3-4 for the last 2 years. Urinalysis noted to be benign. No evidence of hydronephrosis. GFR at baseline as of October 14. #2. Colon mass with metastatic disease to the liver. Status post liver biopsy. Results pending. #3. Chronic kidney disease mineral bone disease. #4. Metabolic acidosis secondary to chronic kidney disease. Improved. #5. Mild hypernatremia secondary to lack of oral water intake. #6. Acute left MCA CVA. Plan: Hep-Lock IV fluids. Patient received 1 dose of IV Lasix 40 mg today. Maintain sodium bicarbonate supplementation. Avoid nephrotoxic agents and hypotensive episodes. Repeat electrolytes in the morning. Patient was also taking Bactrim prior to admission. It has been discontinued. Prognosis guarded.
[2016-10-16] MEDS ORDERED: SCOPOLAMINE 1.5MG/72HR PATCH TRANSDERM SCH (10:00)
[2016-10-16 11:30] VITALS: BMI 26.7
[2016-10-16 11:44] LABS: Glucose,Whole Blood 235 mg/dL (75-99)
[2016-10-16] MEDS: MULTIVITAMINS, THERA 1 EACH TAB PO SCH (11:44)
--- NOTE | 2016-10-16 11:55 | PN ---
SUBJECTIVE: 56 -year-old white male with colon cancer, liver metastases, awaiting pathology, most likely that is the diagnosis. Developed a stroke overnight. He is now not talking. Just staring at people. His renal failure still in the mid 3s. Unresponsive to renal physician treatment. Been trying to get a hold of case guardian for possible placement in Hospice program as he is not eating or drinking or talking and he most likely has colon cancer with metastases throughout the liver and now acute stroke. Unable to ambulate and get out of the bed. Cardiovascular: S1, S2. Lungs clear. GI: Soft. Hematology: Negative Funmilayo s. PSYCH: Fair mood and affect. Neurological: Alert and oriented times zero. Speech is zero. Weakness 3/5 times four extremities. Please see further orders. MTDD
[2016-10-16] MEDS ORDERED: methylPREDNISolone SOD SUCCI 125 MG/2 ML VIAL IV SCH (12:00)
--- NOTE | 2016-10-16 12:24 | XR ---
EXAMINATION TYPE: XR chest 1V portable DATE OF EXAM: 10/16/2016 HISTORY: SOB. REFERENCE: Previous study dated 03/31/2013. FINDINGS: There is a 12 mm nodule in the right midlung. This was not seen previously. The left lung i s clear. There is blunting of the right CP angle. I could not exclude a small right-sided effusion. T he heart is not enlarged. IMPRESSION: 1. 12 MM RIGHT-SIDED PULMONARY NODULE. 2. SMALL RIGHT PLEURAL EFFUSION.
[2016-10-16 12:33] VITALS: PULSE 120
[2016-10-16] MEDS ORDERED: LORazepam 2 MG/ML SYRINGE IV PRN (13:38)
--- NOTE | 2016-10-16 14:47 | P.CNPUL ---
History of Present Illness Consult date: 10/16/16 Requesting physician: Chadwick King Reason for consult: dyspnea, hypoxemia, other Chief complaint: Respiratory distress History of present illness: This is a 56-year-old male patient being seen, evaluated and examined today. This patient was initially transferred from an [facility] for evaluation of a cecal mass with possible liver metastatic lesions. The patient does have a known history of colon cancer. The patient underwent a liver biopsy which is currently pending. He was noted to have some strokelike symptoms during this admission. Therefore neurology was put on consult. It was found that the patient did have a CT of the brain which revealed a vague area of hypodensity in the left MCA. Tory suggesting an acute stroke. This patient does have a history of colon cancer with possible liver metastasis. Upon examination the patient is a aphasic and lethargic, the patient is noted to be on 6 L of supplemental oxygen via nasal cannula., also known to have increased oropharyngeal secretions requiring suctioning by respiratory. Patient has been put on aspiration precautions. The patient's CODE STATUS was discussed yesterday with his legal guardian and the patient was switched to a no code. Currently social work and is working with the patient and the legal guardian as well as Dr. King in regards to the patient's treatment direction. We obtained a chest x-ray which did show a 12 mm right-sided pulmonary nodule, as well as a right small pleural effusion. This nodule is likely metastasis. The patient's condition is highly guarded. Review of Systems ROS unobtainable: due to mental status Past Medical History Past Medical History: Diabetes Mellitus, Hyperlipidemia, Hypertension, Prostate Disorder Additional Past Medical History / Comment(s): constipation, past anemia, deprssion, schizoprenia History of Any Multi-Drug Resistant Organisms: None Reported Past Surgical History: Tonsillectomy Past Anesthesia/Blood Transfusion Reactions: No Reported Reaction Additional Past Anesthesia/Blood Transfusion Reaction / Comment(s): pt is disabled-lives at [id number]. Has [facility] guardian ethel garvin [phone]. Smoking Status: Former smoker - Past Family History Father Family Medical History: Unable to Obtain Mother History Unknown: Yes Medications and Allergies Home Medications Medication Instructions Recorded Confirmed Type Atorvastatin [Lipitor] 40 mg PO DAILY 06/27/14 10/10/16 History OXcarbazepine [Trileptal] 300 mg PO BID 06/27/14 10/10/16 History Polyethylene Glycol 3350 [Miralax] 17 gm PO BID 06/27/14 10/10/16 History Sevelamer [Renvela] 800 mg PO BID 06/27/14 10/10/16 History Tamsulosin HCl [Flomax] 0.4 mg PO DAILY 06/27/14 10/10/16 History cloZAPine [Clozaril] 400 mg PO HS 06/27/14 10/10/16 History sitaGLIPtin [Januvia] 25 mg PO DAILY 06/27/14 10/10/16 History Calcitriol 0.25 mcg PO Q7D 10/10/16 10/10/16 History Carvedilol [Coreg] 6.25 mg PO BID 10/10/16 10/10/16 History Colloidal Oatmeal [Eucerin Eczema 1 applic TOPICAL DAILY 10/10/16 10/10/16 History Relief] Docusate [Colace] 100 mg PO DAILY 10/10/16 10/10/16 History Finasteride [Proscar] 5 mg PO DAILY 10/10/16 10/10/16 History Multivitamins, Thera [Multivitamin 1 tab PO DAILY 10/10/16 10/10/16 History (formulary)] Sulfamethoxazole/Trimethoprim 1 tab PO BID 10/10/16 10/10/16 History [Bactrim DS 800-160 mg] cloZAPine [Clozaril] 200 mg PO DAILY@1500 10/10/16 10/10/16 History glipiZIDE [Glucotrol] 5 mg PO DAILY 10/10/16 10/10/16 History Allergies Allergy/AdvReac Type Severity Reaction Status Date / Time No Known Allergies Allergy Verified 10/10/16 15:19 Physical Exam Vitals: Vital Signs Temp Pulse Pulse Resp BP Pulse Ox 10/16/16 12:32 120 H 10/16/16 12:23 117 H 10/16/16 09:14 122 H 10/16/16 09:05 118 H 88 L 10/16/16 07:00 97.7 F 119 H 38 H 123/73 88 L 10/15/16 20:00 97.6 F 87 16 111/71 95 10/15/16 15:58 97.8 F 84 16 113/76 99 Intake and Output 10/15/16 10/16/16 10/16/16 22:59 06:59 14:59 Intake Total 300 380 Balance 300 380 Intake: IV 300 380 Sodium Chloride 0.45% 1, 300 380 000 ml @ 75 mls/hr IV . [id number] [facility] Rx#:[id number] Other: Voiding Method Diaper Diaper Incontinent Incontinent # Voids 1 1 1 Weight 89.5 kg 89.5 kg Patient Weight 10/17/16 06:59 Weight 89.5 kg GENERAL EXAM: Alert, lethargic comfortable in no apparent distress. HEAD: Normocephalic. EYES: Normal reaction of pupils, equal size. NOSE: Clear with pink turbinates. THROAT: No erythema or exudates. Increased oropharyngeal secretions NECK: No masses, no JVD. CHEST: No chest wall deformity. LUNGS: Lungs noted to be coarse and congested throughout, scattered rhonchi noted throughout. Bases diminished. CVS: S1 and S2 normal with no audible mumurs, regular rhythm. ABDOMEN: No hepatosplenomegaly, normal bowel sounds, no guarding or rigidity. EXTREMITIES: No edema noted, pedal pulses palpable. SKIN: No rashes CENTRAL NERVOUS SYSTEM: Right-sided hemiparesis Results - Laboratory Findings CBC and BMP: 10/11/16 04:13 10/14/16 06:39 PT/INR, D-dimer PT 12.2 sec (9.0-12.0) H 10/12/16 09:45 INR 1.2 (<1.2) H 10/12/16 09:45 Abnormal lab findings: Abnormal Labs 10/10/16 10/10/16 10/10/16 16:45 16:45 16:45 WBC 15.2 H RBC 3.66 L Hgb 11.0 L Hct 33.5 L Neutrophils # 12.6 H Lymphocytes # PT INR Sodium Chloride 109 H Carbon Dioxide 21 L BUN 51 H Creatinine 3.90 H Glucose 150 H POC Glucose (mg/dL) Hemoglobin A1c AST 91 H ALT 101 H Alkaline Phosphatase 537 H CK-MB (CK-2) 3.0 H* Troponin I 0.094 H* Total Protein 5.5 L Albumin 3.1 L Lipase 521 H Carcinoembryonic Ag Urine Protein 10/10/16 10/10/16 10/11/16 21:56 22:05 04:13 WBC RBC Hgb Hct Neutrophils # Lymphocytes # PT INR Sodium Chloride 114 H Carbon Dioxide 16 L BUN 51 H Creatinine 3.70 H Glucose 109 H POC Glucose (mg/dL) 159 H Hemoglobin A1c AST 99 H ALT 98 H Alkaline Phosphatase 546 H CK-MB (CK-2) Troponin I 0.095 H* Total Protein 5.2 L Albumin 2.8 L Lipase Carcinoembryonic Ag Urine Protein 10/11/16 10/11/16 10/11/16 04:13 04:13 04:13 WBC RBC 3.51 L Hgb 10.2 L Hct 32.7 L Neutrophils # 8.8 H Lymphocytes # 0.8 L PT INR Sodium Chloride Carbon Dioxide BUN Creatinine Glucose POC Glucose (mg/dL) Hemoglobin A1c 6.9 H AST ALT Alkaline Phosphatase CK-MB (CK-2) Troponin I 0.107 H* Total Protein Albumin Lipase Carcinoembryonic Ag Urine Protein 10/11/16 10/11/16 10/11/16 05:49 06:43 11:37 WBC RBC Hgb Hct Neutrophils # Lymphocytes # PT INR Sodium Chloride Carbon Dioxide BUN Creatinine Glucose POC Glucose (mg/dL) 129 H 190 H Hemoglobin A1c AST ALT Alkaline Phosphatase CK-MB (CK-2) Troponin I Total Protein Albumin Lipase Carcinoembryonic Ag Urine Protein Trace H 10/11/16 10/11/16 10/12/16 16:47 21:09 06:26 WBC RBC Hgb Hct Neutrophils # Lymphocytes # PT INR Sodium Chloride 117 H Carbon Dioxide 17 L BUN 49 H Creatinine 3.80 H Glucose POC Glucose (mg/dL) 289 H 168 H Hemoglobin A1c AST ALT Alkaline Phosphatase CK-MB (CK-2) Troponin I Total Protein Albumin Lipase Carcinoembryonic Ag >4000.0 H Urine Protein 10/12/16 10/12/16 10/12/16 06:31 09:45 11:32 WBC RBC Hgb Hct Neutrophils # Lymphocytes # PT 12.2 H INR 1.2 H Sodium Chloride Carbon Dioxide BUN Creatinine Glucose POC Glucose (mg/dL) 126 H 236 H Hemoglobin A1c AST ALT Alkaline Phosphatase CK-MB (CK-2) Troponin I Total Protein Albumin Lipase Carcinoembryonic Ag Urine Protein 10/12/16 10/12/16 10/13/16 16:51 20:45 05:57 WBC RBC Hgb Hct Neutrophils # Lymphocytes # PT INR Sodium Chloride Carbon Dioxide BUN Creatinine Glucose POC Glucose (mg/dL) 438 H 125 H 173 H Hemoglobin A1c AST ALT Alkaline Phosphatase CK-MB (CK-2) Troponin I Total Protein Albumin Lipase Carcinoembryonic Ag Urine Protein 10/13/16 10/13/16 10/13/16 06:06 11:32 16:37 WBC RBC Hgb Hct Neutrophils # Lymphocytes # PT INR Sodium 146 H Chloride 117 H Carbon Dioxide 19 L BUN 42 H Creatinine 3.60 H Glucose 103 H POC Glucose (mg/dL) 125 H 243 H Hemoglobin A1c AST ALT Alkaline Phosphatase CK-MB (CK-2) Troponin I Total Protein Albumin Lipase Carcinoembryonic Ag Urine Protein 10/13/16 10/14/16 10/14/16 20:45 05:50 06:39 WBC RBC Hgb Hct Neutrophils # Lymphocytes # PT INR Sodium 146 H Chloride 115 H Carbon Dioxide 20 L BUN 41 H Creatinine 3.39 H Glucose 153 H POC Glucose (mg/dL) 286 H 204 H Hemoglobin A1c AST ALT Alkaline Phosphatase CK-MB (CK-2) Troponin I Total Protein Albumin Lipase Carcinoembryonic Ag Urine Protein 10/14/16 10/14/16 10/14/16 11:45 16:46 20:52 WBC RBC Hgb Hct Neutrophils # Lymphocytes # PT INR Sodium Chloride Carbon Dioxide BUN Creatinine Glucose POC Glucose (mg/dL) 150 H 133 H 189 H Hemoglobin A1c AST ALT Alkaline Phosphatase CK-MB (CK-2) Troponin I Total Protein Albumin Lipase Carcinoembryonic Ag Urine Protein 10/15/16 10/15/16 10/15/16 06:07 06:54 12:06 WBC RBC Hgb Hct Neutrophils # Lymphocytes # PT INR Sodium Chloride Carbon Dioxide BUN Creatinine Glucose POC Glucose (mg/dL) 149 H 134 H Hemoglobin A1c AST 124 H ALT 100 H Alkaline Phosphatase CK-MB (CK-2) Troponin I Total Protein Albumin Lipase Carcinoembryonic Ag Urine Protein 10/15/16 10/15/16 10/16/16 17:17 20:01 07:10 WBC RBC Hgb Hct Neutrophils # Lymphocytes # PT INR Sodium Chloride Carbon Dioxide BUN Creatinine Glucose POC Glucose (mg/dL) 130 H 133 H 176 H Hemoglobin A1c AST ALT Alkaline Phosphatase CK-MB (CK-2) Troponin I Total Protein Albumin Lipase Carcinoembryonic Ag Urine Protein 10/16/16 11:35 WBC RBC Hgb Hct Neutrophils # Lymphocytes # PT INR Sodium Chloride Carbon Dioxide BUN Creatinine Glucose POC Glucose (mg/dL) 235 H Hemoglobin A1c AST ALT Alkaline Phosphatase CK-MB (CK-2) Troponin I Total Protein Albumin Lipase Carcinoembryonic Ag Urine Protein - Diagnostic Findings Chest x-ray: report reviewed, image reviewed Assessment and Plan Plan: Acute hypoxic respiratory failure Colon mass with metastatic disease to the liver possibly metastatic to the lungs as well Right-sided pulmonary nodule, 2 mm Small right-sided pleural effusion Acute left MCA CVA Chronic kidney disease stage IV Metabolic acidosis related to chronic kidney disease Mild hypernatremia secondary to lack of oral intake Plan This patient's prognosis is highly guarded. Currently the patient is being evaluated for possible hospice per medical. The patient's lung nodules highly suspicious for metastatic disease. Nephrology, neurology, surgical, cardiology as well as oncology on consult. Medications have been reviewed and will be continued as ordered. Continue with pulmonary hygiene, coughing and deep breathing exercises, and supportive care. Supplemental oxygen to maintain oxygen saturations of 90% or better. Continue nebulizer treatments. GI and DVT prophylaxis. We will continue to monitor labs/results and adjust treatment as necessary. Further recommendations pending. I performed an examination of the patient and discussed their management with the nurse practitioner. I have reviewed the nurse practitioner's note and agree with the documented findings and plan of care.
== END 2016-10-16 16:45 | disposition expired | DRG 435 ==
LOC: EC 14:45 → EEVIPCON 14:45 → 6SEL 16:07 → 5ONC 10-15 13:45
PROVIDERS: ADMIT Family Medicine; ATTEND Family Medicine
PROC: 0FB23ZX Excision of Left Lobe Liver, Percutaneous Approach, Diagnostic (ICD-10-PCS; principal; 2016-10-15)
DX: C78.7 Secondary malignant neoplasm of liver and intrahepatic bile duct (principal); I63.512 Cerebral infarction due to unspecified occlusion or stenosis of left middle cerebral artery; J96.01 Acute respiratory failure with hypoxia; C78.01 Secondary malignant neoplasm of right lung; K85.90 Acute pancreatitis without necrosis or infection, unspecified; E44.0 Moderate protein-calorie malnutrition; N17.9 Acute kidney failure, unspecified; E87.0 Hyperosmolality and hypernatremia; E87.2 Acidosis; N18.4 Chronic kidney disease, stage 4 (severe); C78.02 Secondary malignant neoplasm of left lung; C18.0 Malignant neoplasm of cecum; R47.01 Aphasia; K20.9 Esophagitis, unspecified; D64.9 Anemia, unspecified; E11.22 Type 2 diabetes mellitus with diabetic chronic kidney disease; I12.9 Hypertensive chronic kidney disease with stage 1 through stage 4 chronic kidney disease, or unspecified chronic kidney disease; E78.5 Hyperlipidemia, unspecified; E66.9 Obesity, unspecified; F25.9 Schizoaffective disorder, unspecified; R32 Unspecified urinary incontinence; Z79.84 Long term (current) use of oral hypoglycemic drugs; Z79.899 Other long term (current) drug therapy; Z87.891 Personal history of nicotine dependence
CPT/HCPCS: 10022; 70450; 71010; 76700; 77012; 80048; 80053; 81003; 82140; 82150; 82378; 82550; 82553; 83036; 83690; 84100; 84450; 84460; 84484; 85025; 85610; 85730; 87086; 88173; 88305; 88341; 88342; 93005; 93306; 94640; 94760; 99285